=== PATIENT | male | born 1980 | race Caucasian/White ===

== ENCOUNTER 2017-08-02 18:46 | Emergency (ER) | payer MEDICAID, SELFPAY ==
[2017-08-02 18:47] VITALS: BP 157/111; PULSE 100; RESP 18; TEMP 36.8; O2SAT 100; BMI 36.3
--- NOTE | 2017-08-02 20:07 | CT_ITS ---
STUDY: CT BRAIN WITHOUT CONTRAST REASON FOR EXAM: Male, 36 years old. Left forearm numbness. Hypertension. RADIATION DOSAGE (If Supplied By Facility): CTDIvol = ( 44.99 ) mGy, DLP = ( 745.49 ) mGycm TECHNIQUE: Transaxial CT imaging of the brain was performed without administration of intravenous contrast material. Individualized dose optimization techniques were used for this CT. COMPARISON: None. FINDINGS: Normal soft tissue structures. Normal calvarium. Normal size ventricles and extra-axial spaces for the patient's age. Normal white matter tracts of the cerebral hemispheres. Normal basal ganglia and thalami. Normal brainstem. Normal cerebellum. There is no intracranial hemorrhage. There are no findings of an acute ischemic infarction. Normal visualized paranasal sinuses. CT/Brain/Head without Contrast IMPRESSION: Normal unenhanced CT scan of the brain. Electronically Signed: José Miguel Ruby MD at 21:13 EDT , Service support ,
--- NOTE | 2017-08-02 20:08 | EKG12_ITS ---
Test Reason : DIZZINESS Blood Pressure : / mmHG Vent. Rate : 083 BPM Atrial Rate : 083 BPM P-R Int : 116 ms QRS Dur : 098 ms QT Int : 366 ms P-R-T Axes : 016 011 -01 degrees QTc Int : 430 ms Normal sinus rhythm Normal ECG Confirmed by ROBBIE HOWARD ([id number]), restaurant expeditor ADRIAN GORDON ([id number]) on 08/05/2017 1:28:13 PM Referred By: MINDA Confirmed By:ROBBIE HOWARD
--- NOTE | 2017-08-02 20:09 | ED.VISSUMM ---
- ER Visit Summary Date of Service: 08/02/17 Chief Complaint: Left forearm numbness History of Present Illness: The patient is a 36 M no senior past medical history. He did have a negative cardiac catheterization in 2015 for atypical chest pain. He states that at around 6:30 PM this evening he developed left forearm numbness and tingling. Really does not describe any weakness. Denies any visual change. Denies any slurred speech. No trouble walking. Patient states he has had intermittent headaches the last several days. There is no family history of intracranial bleeds or aneurysms. He denies any recent head trauma he is on no blood thinners. Physical Examination: Well-appearing young male. Vital signs are stable afebrile. His initial blood pressure is elevated 150s 7/111. Pulse ox 100% on room air no signs of hypoxia. H EENT exam unremarkable. Pupils are reactive light. Extra motions are intact. No facial droop. Normal speech. No signs of head trauma. Neck nontender. No meningismus no lymphadenopathy. Lungs clear to auscultation bilaterally. Heart regular rate and rhythm no murmur. Chest wall nontender. Abdomen soft nontender. Extremities he is moving all 4. He has bilateral equal symmetrical security support analyst strength. Dorsi plantar flexion intact. He has normal range of motion of both upper and lower extremities. Subjectively he says the left forearm feels numb objectively is normal motor strength. He is able to flex and extend his left wrist elbow and shoulder. He has normal range of motion. He has a strong radial pulse. Neurologically other than subjective numbness in his left forearm is neurologic exam is completely normal. He has no focal motor deficits. Test Results: BC normal. BMP normal. EKG sinus rhythm. With no signs of ischemia or dysrhythmia. Chest x-ray normal. CT of the brain normal as read by the radiologist and reviewed by me. Emergency Department Course and Treatment: Repeat exam at 1018 the patient is completely back to normal. He said his numbness resolved. His neurologic exam is completely normal again. He has a good pulse in his left radial artery. He has normal security support analyst strength. He has normal sensation. He has full range of motion. His NIH score is 0. His neurologic exam is no different than it was when he first came in except at that time he had subjective numbness in his left forearm area. He has absolutely no motor loss or weakness. Treatment Plan: Patient's exam and workup has been negative. He will be discharged home to follow-up as an outpatient with Dr. Orozco. Disposition: Discharge Impression: Acute left forearm subjective numbness (paresthesia) of uncertain etiology resolved This note was generated with [employer] dictation software. It may contain incorrect words, spelling, and punctuation that were not noted in review of the chart prior to signing ED Disposition - Plan for ED Patient: Chief Complaint: Neuro S/Sx Referrals: Daniel Orozco MD [Primary Care Provider] -
--- NOTE | 2017-08-02 20:13 | ED.DCSUM_ITS ---
- ER Visit Summary Date of Service: 08/02/17 Chief Complaint: Left forearm numbness History of Present Illness: The patient is a 36 M no senior past medical history. He did have a negative cardiac catheterization in 2015 for atypical chest pain. He states that at around 6:30 PM this evening he developed left forearm numbness and tingling. Really does not describe any weakness. Denies any visual change. Denies any slurred speech. No trouble walking. Patient states he has had intermittent headaches the last several days. There is no family history of intracranial bleeds or aneurysms. He denies any recent head trauma he is on no blood thinners. Physical Examination: Well-appearing young male. Vital signs are stable afebrile. His initial blood pressure is elevated 150s 7/111. Pulse ox 100% on room air no signs of hypoxia. H EENT exam unremarkable. Pupils are reactive light. Extra motions are intact. No facial droop. Normal speech. No signs of head trauma. Neck nontender. No meningismus no lymphadenopathy. Lungs clear to auscultation bilaterally. Heart regular rate and rhythm no murmur. Chest wall nontender. Abdomen soft nontender. Extremities he is moving all 4. 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 Dorsi plantar flexion intact. He has normal range of motion of both upper and lower extremities. Subjectively he says the left forearm feels numb objectively is normal motor strength. He is able to flex and extend his left wrist elbow and shoulder. He has normal range of motion. He has a strong radial pulse. Neurologically other than subjective numbness in his left forearm is neurologic exam is completely normal. He has no focal motor deficits. Test Results: BC normal. BMP normal. EKG sinus rhythm. With no signs of ischemia or dysrhythmia. Chest x-ray normal. CT of the brain normal as read by the radiologist and reviewed by me. Emergency Department Course and Treatment: Repeat exam at 1018 the patient is completely back to normal. He said his numbness resolved. His neurologic exam is completely normal again. He has a good pulse in his left radial artery. He has normal chlorobutadiene scrubber operator strength. He has normal sensation. He has full range of motion. His NIH score is 0. His neurologic exam is no different than it was when he first came in except at that time he had subjective numbness in his left forearm area. He has absolutely no motor loss or weakness. Treatment Plan: Patient's exam and workup has been negative. He will be discharged home to follow-up as an outpatient with Dr. Orozco. Disposition: Discharge Impression: Acute left forearm subjective numbness (paresthesia) of uncertain etiology resolved This note was generated with [employer] dictation software. It may contain incorrect words, spelling, and punctuation that were not noted in review of the chart prior to signing ED Disposition - Plan for ED Patient: Chief Complaint: Neuro S/Sx Referrals: Daniel Orozco MD [Primary Care Provider] -
--- NOTE | 2017-08-02 20:25 | RAD_ITS ---
STUDY: X-RAY CHEST REASON FOR EXAM: Male, 36 years old. Chest pain. TECHNIQUE: Single AP portable view of the chest. COMPARISON: 06/08/2014. FINDINGS: The lungs are clear and expanded. There is no demonstrated pleural abnormality. Normal size heart. Normal mediastinum and donaldo. Normal visualized pulmonary arteries. Normal visualized aortic arch and descending thoracic aorta. Normal visualized thoracic spine. Normal visualized ribs, clavicles, and shoulders. There is no demonstrated abnormality of the visualized soft tissue structures of the upper abdomen. RAD/Chest 1 View (Portable) IMPRESSION: Normal x-ray examination of the chest. Electronically Signed: José Miguel Ruby MD at 21:18 EDT , Service support ,
[2017-08-02 20:28] LABS: Absolute Lymphocyte Count 2.07 X10^3/ul (0.83-4.51); Absolute Neutrophil Count 6.4 X10^3/uL (2.0-7.7); Basophil# 0.04 X10^3/uL; Basophil% 0.4 % (0-1); Eosinophil# 0.19 X10^3/uL; Hematocrit 43.9 % (40-54); Hemoglobin 15.6 g/dl (13.0-16.5); Lymphocyte # 2.07 X10^3/ul (4.0); Lymphocyte % 21.6 % (19-41); Mean Corp Hgb Conc 35.5 g/gl (32-36); Mean Corpuscular Hgb 29.1 pg (27.0-32.0); Mean Corpuscular Volume 81.8 fL (80-94); Mean Platelet Vol. 9.4 fl (6.2-12.0); Monocyte# 0.86 X10^3/uL; Neutrophil % 66.9 % (47-70); POSITIVE COUNT NO; POSITIVE DIFFERENTIAL NO; POSITIVE MORPHOLOGY NO; Platelet Count 241 K/mm3 (150-450); RBC Distribution Width CV 13.3 % (11.6-14.6); RBC Distribution Width SD 39.5 fl (35.1-43.9); Red Blood Count 5.37 M/mm3 (4.6-6.2); White Blood Count 9.6 K/mm3 (4.4-11.0)
[2017-08-02 20:41] LABS: Anion Gap 6 (5-15); BUN 11 mg/dL (7-18); BUN/Creat Ratio 11.1 RATIO (10-20); Calcium,Total 8.9 mg/dL (8.5-10.1); Chloride 104 mmol/L (98-107); EST Glomerular Filtration Rate 90 mL/min (>60); Est Glom Filt Rate - Afr Amer 109 mL/min (>60); Estimated Creatinine Clearance 102.12 ml/min; Glucose 90 mg/dL (74-106); Potassium 3.8 mmol/L (3.5-5.1); Sodium Level 139 mmol/L (136-145)
[2017-08-02 20:45] VITALS: BP 143/97; PULSE 82; RESP 16; O2SAT 100
[2017-08-02 21:53] VITALS: BP 124/83; PULSE 82; RESP 16; O2SAT 96
--- NOTE | 2017-08-02 22:21 | ED.DEP ---
ED Disposition - Plan for ED Patient: Disposition: Home or Assisted Living Chief Complaint: Neuro S/Sx Instructions: ED Paraesthesias Referrals: Daniel Orozco MD [Primary Care Provider] - As Needed Additional Instructions: All your workup including the CAT scan, chest x-ray, EKG and blood work were all normal tonight. Your exam is normal. Follow-up your primary care physician as needed. Return to the ER if weakness in any extremity, trouble with your balance, severe headache, or trouble walking.
[2017-08-02 22:28] VITALS: BP 143/96; PULSE 73; RESP 16; O2SAT 96
== END 2017-08-02 22:29 | disposition home or self-care (01) ==
PROVIDERS: Emergency Provider Emergency Medicine; Family Provider Family Medicine; PCP Family Medicine
DX: R20.0 Anesthesia of skin (principal); R20.2 Paresthesia of skin; R07.9 Chest pain, unspecified; R51 Headache; R03.0 Elevated blood-pressure reading, without diagnosis of hypertension; J45.909 Unspecified asthma, uncomplicated
CPT/HCPCS: 70450; 71045; 80048; 85025; 93005; 99285; A4216

== ENCOUNTER → 2017-09-04 10:39 | Outpatient (CLI) | payer MEDICAID, SELFPAY ==
[2017-09-04 11:35] LABS: AST(SGOT) 30 U/L (15-37); Alanine Aminotransfer ALT/SGPT 55 U/L (16-61); Albumin, Serum 3.9 g/dL (3.2-5.0); Alkaline Phosphatase 52 U/L (45-117); Bilirubin, Direct 0.18 mg/dL (0.00-0.30); Cholesterol 169 mg/dL (200); Globulin 3.9 g/dL (2.2-4.2); High Density Lipoprotein 41 mg/dL; Protein, Total 7.8 g/dL (6.4-8.2); T4 Total, Thyroxin 11.4 ug/dL (4.5-12.1); Thyroid Stim Hormone (TSH) 3.93 uIU/mL (0.358-3.74); Triglycerides 108 mg/dL; Very Low Density Lipoprotein 22 mg/dL (5-40)
== END ==
PROVIDERS: Family Provider Family Medicine; PCP Family Medicine; Visit Provider Internal Medicine Cardiovascular Disease
DX: R07.9 Chest pain, unspecified (principal); R42 Dizziness and giddiness; E66.9 Obesity, unspecified
CPT/HCPCS: 36415; 80061; 80076; 84436; 84443

== ENCOUNTER → 2017-09-13 15:24 | Outpatient (CLI) | payer MEDICAID, SELFPAY ==
--- NOTE | 2017-09-13 16:00 | CT_ITS ---
STUDY: CTA CHEST REASON FOR EXAM: Male, 36 years old. Family history of aortic dissection. Chest pain. RADIATION DOSAGE (If Supplied By Facility): CTDIvol = ( 15.63 ) mGy, DLP = ( 800.11 ) mGycm TECHNIQUE: The examination was performed with the intravenous administration of 100 ml of Isovue 370 contrast material. Post-processing of the angiographic images was performed, with multiplanar reformation and 3D reconstruction. Individualized dose optimization techniques were used for this CT. COMPARISON: None. FINDINGS: Normal enhancement of the main pulmonary artery and right and left pulmonary arteries. Normal enhancement of the bilateral peripheral pulmonary arteries. There is no demonstrated pulmonary embolism. Normal thoracic aorta and visualized great vessels. There is no demonstrated aortic dissection. Normal heart and pericardium. Normal mediastinum. Normal hilar regions. Normal visualized trachea and bronchi. The lungs are well expanded. Normal pulmonary parenchyma. Normal pleura. Normal chest wall structures. Normal osseous structures. There is diffuse fatty infiltration of the liver. CT/CTA Chest W/WO Contrast IMPRESSION: Normal CTA chest examination, without a demonstrated pulmonary embolism or arterial dissection. No evidence for acute chest disease. Electronically Signed: José Miguel Ruby MD at 23:57 EDT , Service support ,
== END ==
PROVIDERS: Family Provider Family Medicine; PCP Family Medicine; Visit Provider Physician Assistant Medical
DX: R07.9 Chest pain, unspecified (principal); Z82.49 Family history of ischemic heart disease and other diseases of the circulatory system
CPT/HCPCS: 71275; Q9967; A4216

== ENCOUNTER → 2017-09-26 10:21 | Outpatient (CLI) | payer MEDICAID, SELFPAY ==
--- NOTE | 2017-09-26 10:22 | STEWCON_ITS ---
Reason For Study: Chest Pain Stress Results Protocol: Greg Protocol Maximum Predicted HR: 184 bpm Target HR: 156 bpm% Max imum Predicted HR: 89 % DurationHeart Rate Stage (mm:ss) (bpm) BPCom ment Baseline 75 138/98 Definity 3 ML Given Diluted; 4/10 Chest Pain Greg Protocol Stage I 3:00 12 5 130/844/10 Chest Pain Greg Protocol Stage II 3:00 14 2 146/884/10 Chest Pain; Mild Dyspnea Greg Protocol Stage III 3:00 15 7 152/844/10 Chest Pain; Moderate Dyspnea Greg Protocol Stage IV 0:20 16 4 / 4/1 0 Chest Pain; Audible Wheezes; Moderate Dyspnea Recovery 96 132/94 4/10 Chest Pain; No Dyspnea Stress Duration: 9:20 mm:ss Maximum Stress HR: 164 bpmM ETS: 11 Baseline Echocardiogram Findings The estimated ejection fraction is 65 %. Stress Echo Wall motion Data Resting WMIntermediate WMStress WM Resting Wall Motion Wall Motion Stress No regional wall motion No regional wall motion abnormalities noted. abnormalities noted. EKG Data Normal intervals are noted. The patient exercised according to the regular Greg protocol for a total duration of 9:20. The maximum heart rate attained was 166 beats per minute. This was 90% of maximum predicted heart rate. The patient exercised into stage 4 of the Greg protocol. No arrhythmias noted. Interpretation Summary Contrast injection was performed. The estimated ejection fraction is 65 %. Normal adequate treadmill echocardiogram. Negative for ischemia by EKG and echocardiographic criteria. Patient had baseline 4 out of 10 chest pain prior to the test starting, which did not worsen or improve during exercise. No regional wall motion abnormalities noted at peak exercise. No arrhythmias noted. Average exercise capacity for age. Appropriate blood pressure response to exercise. Final LVEF of 75%. Decreased sensitivity due to poor echo windows requiring Definity agent. No complications. Ordering Physician: Kendall Bain Referring Physician: Kendall Bain Performed By: Tulio Sadnra RCS
== END ==
PROVIDERS: Family Provider Family Medicine; PCP Family Medicine; Visit Provider Internal Medicine Cardiovascular Disease
DX: R07.9 Chest pain, unspecified (principal); R42 Dizziness and giddiness; E66.9 Obesity, unspecified
CPT/HCPCS: 93017; 93350; Q9957; A4216; C8928

== ENCOUNTER → 2017-09-27 14:41 | Outpatient (CLI) | payer MEDICAID, SELFPAY ==
--- NOTE | 2017-09-27 14:42 | ECHOD_ITS ---
Reason For Study: CHEST PAIN Procedure This was a 2D Doppler, Color Flow transthoracic echocardiogram. Exam performed in department. Left Ventricle Normal size and thickness. The estimated ejection fraction is 60 %. Right Ventricle Normal RV size. Normal systolic function. Atria Normal left atrium. Normal right atrium. Mitral Valve Trivial mitral valve insufficiency. Tricuspid Valve Mild tricuspid valve insufficiency. Aortic Valve Trisinus/trileaflet aortic valve. Pulmonic Valve Normal pulmonic valve. Great Vessels Normal aortic root. Pericardium/Pleural No pericardial effusion. MMode/2D Measurements & Calculations LVIDd: 5.2 cm IVSd: 0.99 cm Ao root diam: 2.7 cm LVIDs: 3.2 cm LVPWd: 0.89 cm RVDd: 4.6 cm FS: 38.2 % LAV(MOD-bp): 50.1 ml EDV(MOD-sp4): 111.3 ml EDV(MOD-sp2): 85.1 ml LAV(MOD-bp) Indexed: 22.2 ml/m2 ESV(MOD-sp4): 36.5 ml EF(MOD-sp2): 66.9 % LAV(MOD-sp2): 45.6 ml EF(MOD-sp4): 67.2 % LAV(MOD-sp4): 43.9 ml SV(MOD-sp4): 74.9 ml SV(MOD-sp2): 56.9 ml LA A4 area: 16.6 cm2 RA A4 area: 14.1 cm2 Doppler Measurements & Calculations MV E max alberto: 92.9 cm/sec Lat Peak E' Alberto: 16.1 cm/sec Med Peak E' Alberto: 10.1 cm/sec MV A max alberto: 47.3 cm/sec E/E' lat: 5.8 E/E' med: 9.2 MV E/A: 2.0 Ao V2 max: 130.3 cm/sec LV V1 max: 111.1 cm/sec TR max alberto: 251.8 cm/sec Ao max P.8 mmHg LV V1 max P.9 mmHg TR max P.4 mmHg Interpretation Summary The estimated ejection fraction is 60 %. Mild tricuspid valve insufficiency. Ordering Physician: Kendall Bain Referring Physician: VASHTI RODRIGUEZ Performed By: Karlene Wahl RDCS, RVT
== END ==
PROVIDERS: Family Provider Family Medicine; PCP Family Medicine; Visit Provider Internal Medicine Cardiovascular Disease
DX: R07.9 Chest pain, unspecified (principal); R42 Dizziness and giddiness
CPT/HCPCS: 93306

== ENCOUNTER 2018-02-01 07:42 | Emergency (ER) | payer BC, MEDICAID, SELFPAY ==
[2018-02-01 07:42] VITALS: BP 138/101; PULSE 98; RESP 17; TEMP 37.3; O2SAT 97; BMI 35.6
--- NOTE | 2018-02-01 07:57 | ED.DCSUM_ITS ---
- ER Visit Summary Date of Service: 02/01/18 Chief Complaint: Rash History of Present Illness: The patient is a 37 M presents to the emergency department with rash. Patient states that he works second shift. He states to me at home from work, at about 1 AM, he noticed some redness on the dorsum of his left second finger. He states throughout the evening, the redness spread. He began have raised red rash on his chest, back, arms, and legs. He describes it as intensely itching. He denies any fevers or chills. He denies any new exposures. He is on no new medications. He denies any conjunctivitis or changes in the mucous membrane of his mouth. He denies any recent illness. He has had no nausea or vomiting. Patient does have history of prior MRSA infection of the hand, but states that this feels different. Physical Examination: Vital signs reviewed General: Well-nourished, well-developed Head: Normocephalic, atraumatic Eyes: Pupils equal and reactive, extraocular muscles intact Neck, supple, no lymphadenopathy Heart: Regular rate and rhythm Respiratory: No distress, clear bilaterally Abdomen: Soft, nontender, nondistended, no peritoneal signs Back: Nontender Extremities: Nontender, mild erythema and edema of the posterior left second finger, no pain to palpation, no cords Skin: Patient has diffuse blanching maculopapular rash involving both arms, chest, back, and anterior thighs. There is no petechiae. There is no purpura. There are no large areas of confluence. Neuro: Alert and oriented, no focal or lateralizing deficits Test Results: [] Emergency Department Course and Treatment: The patient presents with a cutaneous allergic reaction. It does appear as if he may have had some sort of injury or bite or sting to the dorsum of his left index finger. He now has secondary generalization of the rash. He has no evidence of anaphylaxis. He has no evidence of angioedema. He has no wheezing. The patient was treated with prednisone, Benadryl, and Pepcid. He was observed. He did have improvement of symptoms but did continue to have some itching. He was given Vistaril with improvement. His redness has significantly faded. At this time, I am going to keep him on a prednisone burst. This does seem mostly allergic, but the patient has had similar symptoms of cellulitis. He will be placed on Keflex.. I have no suspicion of Berumne-Shiva or other dangerous process. At this time, due to the patient is safe for discharge. He was counseled on concerning symptoms and reasons to return. Treatment Plan: [] Disposition: Discharge Impression: Allergic reaction This note was generated with [employer] dictation software. It may contain incorrect words, spelling, and punctuation that were not noted in review of the chart prior to signing ED Disposition - Plan for ED Patient: Chief Complaint: Rash Instructions: ED Allergic Reaction General Other Prescriptions: Cephalexin [Keflex] 500 mg PO Q8 #21 cap Prednisone 10 mg PO UD #33 tab Famotidine [Pepcid] 20 mg PO BID #14 tab Referrals: Daniel Orozco MD [Primary Care Provider] -
[2018-02-01] MEDS: predniSONE 20 MG Tablet 60 MG PO (07:58)
[2018-02-01] MEDS: DiphenhydrAMINE 25 MG Capsule 50 MG PO (07:58)
[2018-02-01] MEDS: Famotidine 20 MG Tablet PO (07:58)
[2018-02-01] MEDS: hydrOXYzine 50 MG/ML Vial IM (09:06)
[2018-02-01 09:53] VITALS: BP 144/82; PULSE 87; RESP 14; O2SAT 98
== END 2018-02-01 09:54 | disposition home or self-care (01) ==
LOC: ED 07:58
PROVIDERS: Emergency Provider Emergency Medicine; Family Provider Family Medicine; PCP Family Medicine
DX: L30.9 Dermatitis, unspecified (principal); T78.40XA Allergy, unspecified, initial encounter; X58.XXXA Exposure to other specified factors, initial encounter; Z79.899 Other long term (current) drug therapy; Z86.14 Personal history of Methicillin resistant Staphylococcus aureus infection
CPT/HCPCS: 96372; 99284

== ENCOUNTER 2018-04-23 09:20 | Emergency (ER) | payer BC, MEDICAID, SELFPAY ==
[2018-04-23 09:21] VITALS: BP 155/97; PULSE 73; RESP 17; TEMP 36.2; O2SAT 98; BMI 35.2
--- NOTE | 2018-04-23 09:32 | RAD_ITS ---
STUDY: X-RAY - LUMBAR SPINE REASON FOR EXAM: Male, 37 years old. Low back pain following a recent fall. TECHNIQUE: 3 view(s) of the lumbar spine were obtained. COMPARISON: None FINDINGS: Normal lumbar lordosis. There is no substantial scoliosis. There is a normal alignment of the vertebrae. Mild degree of anterior spondylolisthesis at the L2-L3 level. Normal disc space heights. The soft tissue structures are unremarkable. RAD/Lumbar Spine 2 or 3 Views IMPRESSION: Spondylosis at the L2-L3 level. Electronically Signed: Matt Guillermo MD at 10:06 EST Tel [phone], Service support ,
--- NOTE | 2018-04-23 09:32 | RAD_ITS ---
STUDY: X-RAY - RIGHT HIP REASON FOR EXAM: Male, 37 years old. Right hip pain following a recent fall. TECHNIQUE: 2 views of the hip. COMPARISON: None. FINDINGS: Normal femoral head, neck, intertrochanteric region and visualized proximal femur. Normal acetabulum. Normal hip joint. Normal visualized superior and inferior pubic rami and ischial tuberosities. Small phleboliths in the right hemipelvis. RAD/HIP, UNI W/ Pelvis 2-3 Views IMPRESSION: No acute abnormality is seen. Electronically Signed: Matt Guillermo MD at 10:04 EST Tel [phone], Service support ,
--- NOTE | 2018-04-23 09:42 | ED.VISSUMM ---
- ER Visit Summary Date of Service: 04/23/18 Chief Complaint: Fall History of Present Illness: The patient is a 37 M who fell on his steps 2 days ago. Patient states he was going up the steps, lost his balance, and fell backwards down 3 steps landing on his right side. He is complaining of pain to the lateral right hip and to his lower back on the right. Pain does not radiate down to his foot. He does not have paresthesias. He did not strike his head or lose consciousness. Patient did take some Aleve with last dose taken before work last night. Physical Examination: Vital signs grossly unremarkable. Patient sitting upright in bed no acute distress. Head neck examination reveals no sign of trauma. Heart is regular rate and rhythm. Lungs sounds clear. Abdomen is soft nontender. Back examination reveals reproducible tenderness in the right low lumbar paraspinals. Lower extremity examination reveals tenderness of the greater trochanter of the right hip. No ecchymosis is noted. Neuro exam is unremarkable. Test Results: Pelvis with right hip is unremarkable and shows no sign of fracture. Lumbar spine x-rays show no fracture. Emergency Department Course and Treatment: Patient is given naproxen here. He will be given perception for naproxen as well as Flexeril. Treatment Plan: [] Disposition: Discharge Impression: 1. Mechanical fall with muscular skeletal lumbar strain 2. Right hip contusion This note was generated with [employer] dictation software. It may contain incorrect words, spelling, and punctuation that were not noted in review of the chart prior to signing ED Disposition - Plan for ED Patient: Chief Complaint: Fall Referrals: Daniel Orozco MD [Primary Care Provider] -
[2018-04-23] MEDS: Naproxen 500 MG Tablet PO (09:46)
--- NOTE | 2018-04-23 09:59 | ED.DEP ---
ED Disposition - Plan for ED Patient: Disposition: Home or Assisted Living Chief Complaint: Fall Instructions: ED Mechanical Fall, ED Sprain Strain Lumbar, ED Contusion Hip Prescriptions: Naproxen [Naprosyn] 500 mg PO BID PRN PRN #20 tablet PRN Reason: Pain Cyclobenzaprine [Flexeril] 10 mg PO TID PRN #20 tablet PRN Reason: Muscle Spasm Referrals: Daniel Orozco MD [Primary Care Provider] - 1 Week if not improving
== END 2018-04-23 10:39 | disposition home or self-care (01) ==
PROVIDERS: Emergency Provider Emergency Medicine; Family Provider Family Medicine; PCP Family Medicine
DX: S39.012A Strain of muscle, fascia and tendon of lower back, initial encounter (principal); S70.01XA Contusion of right hip, initial encounter; W10.9XXA Fall (on) (from) unspecified stairs and steps, initial encounter; Y93.9 Activity, unspecified; Y92.009 Unspecified place in unspecified non-institutional (private) residence as the place of occurrence of the external cause; Y99.9 Unspecified external cause status; J45.909 Unspecified asthma, uncomplicated; F32.9 Major depressive disorder, single episode, unspecified; Z79.899 Other long term (current) drug therapy; Z87.891 Personal history of nicotine dependence
CPT/HCPCS: 72100; 73502; 99283

== ENCOUNTER 2019-07-30 08:57 | Emergency (ER) | payer BC, SELFPAY ==
[2019-07-30 08:58] VITALS: BP 183/116; PULSE 101; RESP 18; TEMP 36.6; O2SAT 98; BMI 37.6
--- NOTE | 2019-07-30 09:04 | RAD_ITS ---
STUDY: X-RAY - LEFT SHOULDER REASON FOR EXAM: Male, 38 years old. Pain s/p football injury TECHNIQUE: 3 view(s) of the shoulder. COMPARISON: None. FINDINGS: Normal glenohumeral articulation. Normal acromioclavicular joint. Normal acromion. Normal humeral head and visualized proximal humerus. The soft tissue structures are unremarkable. Normal visualized pulmonary apex. RAD/Shoulder min 2 Views IMPRESSION: Normal x-ray examination of the shoulder. Electronically Signed: Matt Guillermo, at 9:44 EDT , Service support ,
--- NOTE | 2019-07-30 09:04 | ED.VIS.GEN ---
History of Present Illness Chief Complaint: Upper Extremity Injury Informant: Patient Onset: Days Context: Gradual Onset Timing: Continuous Current Severity: Moderate Maximum Severity: Moderate Narrative: The patient is a 38-year-old male who is right-hand dominant that presents to the emergency department with left shoulder injury. Patient states he was playing football. He states that he got struck in the shoulder. He iced it for a few days and thought that it was just muscular. He states since then, he has had some pain especially when he moves the shoulder. He denies any chest pain or dyspnea. The pain is not radiating. He states if he lifts his arm above his head is when he gets most of his pain. He is otherwise been in his normal state of health. Prior similar symptoms: No Recent Illness/Hospitalization: No Past Medical History - Allergies and Home Meds Allergies/Adverse Reactions: Allergies simvastatin Adverse Reaction (Severe, Verified 07/30/19 09:00) Severe myalgias Primary Care Physician: Javier Pino DO [STAFF PHYSICIAN] - Prior records reviewed: Yes Past Medical History: - - Coronary vascular disease Surgical History: noncontributory Smoking Status: Former smoker - Family History Maternal Family History: Family History (Last Reviewed 04/07/18 @ 14:57 by Geni Alexandre) Mother CAD (coronary artery disease) Myocardial infarction Grandfather CAD (coronary artery disease) Grandmother CAD (coronary artery disease) Brother Heart disease Family History: Reports: Heart Disease Paternal Family History: Family History (Last Reviewed 04/07/18 @ 14:57 by Geni Alexandre) Mother CAD (coronary artery disease) Myocardial infarction Grandfather CAD (coronary artery disease) Grandmother CAD (coronary artery disease) Brother Heart disease Family History: Reports: No pertinent history Sibling Family History: Family History (Last Reviewed 04/07/18 @ 14:57 by Geni Alexandre) Mother CAD (coronary artery disease) Myocardial infarction Grandfather CAD (coronary artery disease) Grandmother CAD (coronary artery disease) Brother Heart disease Family History: Reports: No pertinent history Review of Systems General: Denies: Chills, Fever, Sweats Eyes: Denies: Visual changes - bilaterally, Diplopia ENT: Denies: Rhinorrhea, Sore throat Cardiovascular: Denies: Chest pain, Palpitations Respiratory: Denies: Dyspnea, Cough, Dyspnea on exertion Gastrointestinal: Denies: Abdominal pain, Nausea, Vomiting, Diarrhea, Melena, Hematochezia Genitourinary: Denies: Dysuria, Hematuria, Frequency Musculoskeletal: Denies: Back pain, Extremity Pain Skin: Denies: Rash, Wounds Neurological: Denies: Headache, Weakness, Numbness Physical Exam Vital Signs/Narrative: Vital Signs Temp Pulse Resp BP Pulse Ox 07/30/19 08:58 97.9 F 101 H 18 183/116 H 98 Inital Vital Signs reviewed: Yes General: Well nourished, Well developed, No Acute Distress Head: Normocephalic, Atraumatic Eyes: Perrl, EOMI ENT: Moist mucous membranes, No rhinorrhea Neck: Supple, Nontender Cardiovascular: Regular rate, Regular rhythm, No murmurs Respiratory: No distress, CTA bilaterally, Chest nontender Abdomen: Soft, Nontender, Nondistended, Normal bowel sounds Back: Nontender, Normal Inspection Extremities: No edema, Tenderness - Tender over the proximal humerus. No gross laxity. Axillary nerve preserved. No evidence of dislocation. Skin: Normal color, No rash Neurological: Alert, Oriented x3, Cranial nerves II-XII grossly intact, Normal Strength, Normal Sensation Psychological: Normal affect, Normal Mood Diagnostic/Tx/Re-eval Clinical Impression(s) from Imaging Studies Shoulder X-Ray 07/30/19 09:04 IMPRESSION: Normal x-ray examination of the shoulder. Electronically Signed: Matt Eagle, at 9:44 EDT , Service support , - Medical Decision Making Patient presents with atraumatic shoulder pain after injury 1 week ago. His joint is intact. His axillary nerve is preserved. He has had no chest pain. Plain films were obtained of the shoulder which show no evidence of acute fracture. I do suspect this is likely shoulder strain versus rotator cuff pathology. He will be placed in a sling for comfort. The patient will be given outpatient orthopedic follow-up. Impression 1. Left shoulder strain ED Disposition - Plan for ED Patient: Instructions: Shoulder Sprain Prescriptions: Naproxen [Naprosyn] 500 mg PO BID PRN #20 tab Prescription Printed Referrals: Javier Pino DO [STAFF PHYSICIAN] -
[2019-07-30 10:37] VITALS: BP 114/79; PULSE 62; RESP 15; O2SAT 97
== END 2019-07-30 10:38 | disposition home or self-care (01) ==
LOC: ED 09:42
PROVIDERS: Emergency Provider Emergency Medicine; PCP Family Medicine
DX: S46.912A Strain of unspecified muscle, fascia and tendon at shoulder and upper arm level, left arm, initial encounter (principal); W51.XXXA Accidental striking against or bumped into by another person, initial encounter; Y93.61 Activity, american tackle football; Y92.9 Unspecified place or not applicable; Y99.9 Unspecified external cause status; Z79.899 Other long term (current) drug therapy; Z87.891 Personal history of nicotine dependence
CPT/HCPCS: 73030; 99282

== ENCOUNTER 2019-10-27 11:08 | Emergency (ER) | payer MEDICAID, SELFPAY ==
[2019-10-27 11:09] VITALS: BP 146/90; PULSE 87; RESP 17; TEMP 36.4; O2SAT 98; BMI 36.2
--- NOTE | 2019-10-27 11:23 | US_ITS ---
STUDY: SCROTUM ULTRASOUND REASON FOR EXAM: Male, 38 years old. BILAT PAIN TECHNIQUE: Ultrasound evaluation of the scrotum was performed with color Doppler and static templeton-scale imaging. COMPARISON: None. FINDINGS: RIGHT TESTICLE INTRATESTICULAR: There is a normal size of the right testicle. The right testicle measures 4.3 x 3.0 x 2.2 cm. There is a homogenous echotexture. There is normal arterial and normal venous vascularity. There is no demonstrated right testicular mass or cyst. EXTRATESTICULAR: The epididymis is normal in size. The epididymis head measures 1.6 x 1.0 x 0.6 cm. There is normal vascularity of the epididymis. There is no demonstrated epididymal cystic structure. There is no demonstrated hydrocele. There is no demonstrated varicocele. There is no demonstrated extratesticular mass or cyst. LEFT TESTICLE INTRATESTICULAR: There is a normal size of the left testicle. The left testicle measures 4.3 x 2.9 x 2.5 cm. There is a homogenous echotexture. There is normal arterial and normal venous vascularity. There is no demonstrated left testicular mass or cyst. EXTRATESTICULAR: The epididymis is normal in size. The epididymis head measures 1.0 x 1.3 x 0.5 cm. There is normal vascularity of the epididymis. There is no demonstrated epididymal cystic structure. There is no demonstrated hydrocele. There is no demonstrated varicocele. There is no demonstrated extratesticular mass or cyst. US/Testicular with Arterial Flow IMPRESSION: Normal bilateral testicles. Electronically Signed: Laci Alvarez MD at 12:03 EDT Tel , Service support ,
--- NOTE | 2019-10-27 11:24 | ED.VISSUMM ---
- ER Visit Summary Date of Service: 10/27/19 Chief Complaint: [Scrotal pain] History of Present Illness: The patient is a 38 M [presents to the emergency department complaint of pain in his testicles for last 4 days. Patient denies any trauma. Patient states that more the pain seems to be sharp and into the left testicle. He has some dull ache in the right 1. Patient has had epididymitis in the past. He denies any fevers. He denies dysuria. He denies any abdominal pain or back pain. Currently rates his pain a 6 out of 10. Patient otherwise has no medical history. He has had prior vasectomy.] Physical Examination: [HEENT-PERRLA, EOMI. Cranial nerves II through XII grossly intact. TMs clear. Mucous membranes moist. No adenopathy. Cardiovascular-regular rate and rhythm without murmur or ectopy Lungs-clear to auscultation, chest wall stable without crepitus or subcu emphysema Abdomen-normoactive bowel sounds, soft, nontender, no rebound or rigidity, no peritoneal signs. exam-patient is a circumcised male. He does have tenderness over left epididymis. Testicle has a normal lie. Normal cremasteric reflex. Patient has no real discomfort over right testicle or epididymis. Extremities-intact ?4, normal range of motion, normal pulses, atraumatic] Test Results: [Urinalysis was normal. Testicular ultrasound obtained was normal.] Emergency Department Course and Treatment: [] Treatment Plan: [We will be treated with Bactrim for 7 days suspect he may have low-grade case of epididymitis. Patient will be referred to urology for follow-up.] Disposition: [Discharged home in stable condition] Impression: [Left testicular pain] This note was generated with [employer] dictation software. It may contain incorrect words, spelling, and punctuation that were not noted in review of the chart prior to signing ED Disposition - Plan for ED Patient: Referrals: Daniel Orozco MD [Primary Care Provider] -
[2019-10-27 12:43] LABS: Bacteria 0 SEEN /hpf (None Seen); Red Blood Cells-Urine 0 SEEN /hpf (0-5); Squamous Epithelial Cells - UA 0 SEEN /hpf (0-5); White Blood Cells 0 SEEN /hpf (0-5)
[2019-10-27 12:50] LABS: Color, Urine Yellow (Yellow); Glucose, Dipstick Normal (Normal); Ketone-Dipstick Negative (Negative); Leukocyte Esterase-Dipstick Negative /ul (Negative); Nitrite-Dipstick Negative (Negative); Occult Blood-Urine Negative /ul (Negative); Protein-Dipstick Negative (Negative); Urine Bilirubin Dipstick Negative (Negative); Urine Clarity Sl. Cloudy (Clear); Urine Urobilinogen Normal (Normal); Urine pH 6.5 (5.0 - 8.0)
[2019-10-27 12:59] LABS: Mucous, Urine 1+ /hpf (<or=2+)
--- NOTE | 2019-10-27 13:11 | ED.DEP ---
ED Disposition - Plan for ED Patient: Instructions: ED Epididymitis Prescriptions: Smz/Tmp Ds [Bactrim Ds] 1 tab PO BID #14 tab Transmission Status: Pending to [id number] Referrals: Daniel Orozco MD [Primary Care Provider] - Markell Rowley MD [STAFF PHYSICIAN] - 5-7 Days
[2019-10-27 13:18] VITALS: BP 136/90
--- OUTSIDE RECORDS SUMMARY | 2020-03-06 10:16 | XMS RPT_ITS | CCD ---
:1980 External Reference #:[id number] Author Organization [facility] Care Team Providers Name Role Phone RIDERJordy Unavailable Unavailable PHYSICIAN Unavailable Unavailable Results Result Name Value Range Unit Interpretation Flag Date Location progress on 2019-12 PROGRESS HNO ID: [id number] Normal 01-14-2020 [facility] Author: David (Security Engineer) [place] ([id number]) Service: ? Author Type: Nurse Practitioner Type: Progress Notes Filed: 01/14/2020 2:37 PM Note Text: Subjective HPI HPI Lonnie Bob is a 39 year old male who presents t [facility] for CC of dental pain. This started 1 week ago. Has tried otc medicati on. Symptoms are worsened by nothing. Risk factors hx of poor dental heal th. Denies uri symptom. .Patient presents with: Toothache: x 1 week PAST MEDICAL HISTORY Diagnosis Date - Asthma - Depression - Heart abnormality - NEGATIVE MEDICAL HISTORY - Obesity - Thyroid activity decreased PAST SURGICAL HISTORY Procedure Laterality Date - COLONOSCOP W/ OR W/O BRSH SPEC 06/02/15 Colonoscopy - EGD W/O OR W/BRUSH/WASH 06/02/15 EGD - LEFT HEART CATH,PERCUTANEOUS 06/09/14 Cardiac cath, L heart- [place] - VASECTOMY 06/21/10 ALLERGIES Simvastatin MEDICATIONS levothyroxine (SYNTHROID) 50 mcg tablet Take 1 tablet by rhea th once daily. Take on empty stomach. For Thyroid. cyclobenzaprine (FLEXERIL) 10 mg tablet Take 1 tablet by rhea th three times daily as needed. Cholecalciferol, Vitamin D3, 1,000 unit cap Take 1 capsule b y mouth once daily. BUDESONIDE (PULMICORT INHALATION) Inhale as instructed. albuterol HFA 90 mcg/actuation inhaler Inhale 2 Puffs as ins tructed every 6 hours as needed for Wheezing/Shortness of Breath. multivitamin tablet Take 1 tablet by mouth once daily. amoxicillin (AMOXIL) 875 mg tablet Take 1 tablet by mouth tw ice daily for 10 days. omeprazole (PRILOSEC) 20 mg capsule Take 1 capsule by mouth daily before breakfast. 1/2 hr before meal. FAMILY HISTORY Problem Relation Age of Onset - Coronary Artery Disease Mother - Coronary Artery Disease Maternal Grandfather - None Father - COPD Maternal Grandmother - COPD Maternal Grandfather Social History Tobacco Use - Smoking status: Former Smoker Packs/day: 1.00 Years: 8.00 Pack years: 8.00 Types: Cigarettes Quit date: 04/25/2005 Years since quittin.7 - Smokeless tobacco: Never Used Substance Use Topics - Alcohol use: No - Drug use: No ROS Objective Blood pressure 112/72, pulse 87, resp. rate 16, weight 116.8 kg (257 lb 9.6 oz). Physical Exam Constitutional: He is oriented to person, place, and time an d well-developed, well-nourished, and in no distress. Non-toxi c appearance. He does not have a sickly appearance. No distress. HENT: Head: Normocephalic and atraumatic. Right Ear: Hearing, tympanic membrane, external ear and ear canal normal. Left Ear: Hearing, tympanic membrane, external ear and ear c anal normal. Nose: Nose normal. Mouth/Throat: Uvula is midline, oropharynx is clear and mois t and mucous membranes are normal. Eyes: Pupils are equal, round, and reactive to light. Conjun ctivae and lids are normal. Right eye exhibits no discharge. Left eye e xhibits no discharge. No scleral icterus. Neck: Trachea normal and normal range of motion. Neck supple . Pulmonary/Chest: Effort normal. Lymphadenopathy: He has no cervical adenopathy. Neurological: He is alert and oriented to person, place, and time. Skin: No rash noted. He is not diaphoretic. ASSESSMENT/PLAN: 1. Tooth infection - ICD9: 522.4, ICD10: K04.7 Take medication as ordered See dentist lynette Follow up if signs of infection worsen - AMOXICILLIN 875 MG TABLET Agrees to plan David Cruz APRN.AUTOMATIC OUTSOLE CUTTER cnov on 2020-01-14 CNOV Office Visit (UCWSTR) Normal 01-14-20 [place] [facility] LISBETHLONNIE CHONG ([id number]) 1980 [facility] Date Time Provider Department ([id number]) 01/14/20 2:00 PM DAVID CRUZ (JAGRUTI) [facility] During your visit today, we recorded the following informati on about you: Pulse Respiration Blood pressure Weight 87/minute 16/minute 112/72 116.8 kg David Cruz APRN.CNP 01/14/2020 2:37 PM Signed Subjective HPI HPI Lonnie Corbett Lisbeth is a 39 year old male who presents t [place] for CC of dental pain. This started 1 week ago. Has tried otc me dication. Symptoms are worsened by nothing. Risk factors hx of poor dental health. Denies uri symptom. .Patient presents with: Toothache: x 1 week PAST MEDICAL HISTORY Diagnosis Date - Asthma - Depression - Heart abnormality - NEGATIVE MEDICAL HISTORY - Obesity - Thyroid activity decreased PAST SURGICAL HISTORY Procedure Laterality Date - COLONOSCOP W/ OR W/O BRSH SPEC 06/02/15 Colonoscopy - EGD W/O OR W/BRUSH/WASH 06/02/15 EGD - LEFT HEART CATH,PERCUTANEOUS 06/09/14 Cardiac cath, L heart- [place] - VASECTOMY 06/21/10 ALLERGIES Simvastatin MEDICATIONS levothyroxine (SYNTHROID) 50 mcg tablet Take 1 tablet by mouth once daily. Take on empty stomach. For Thyroid. cyclobenzaprine (FLEXERIL) 10 mg tablet Take 1 tablet by three times daily as needed. Cholecalciferol, Vitamin D3, 1,000 unit cap Take 1 capsule by mouth once daily. BUDESONIDE (PULMICORT INHALATION) Inhale as instructed. albuterol HFA 90 mcg/actuation inhaler Inhale 2 Puffs as i nstructed every 6 hours as needed for Wheezing/Shortness of Breath. multivitamin tablet Take 1 tablet by mouth once daily. amoxicillin (AMOXIL) 875 mg tablet Take 1 tablet by [facility] twice daily for 10 days. omeprazole (PRILOSEC) 20 mg capsule Take 1 capsule by mouth daily before breakfast. 1/2 hr before meal. FAMILY HISTORY Problem Relation Age of Onset - Coronary Artery Disease Mother - Coronary Artery Disease Maternal Grandfather - None Father - COPD Maternal Grandmother - COPD Maternal Grandfather Social History Tobacco Use - Smoking status: Former Smoker Packs/day: 1.00 Years: 8.00 Pack years: 8.00 Types: Cigarettes Quit date: 04/25/2005 Years since quittin.7 - Smokeless tobacco: Never Used Substance Use Topics - Alcohol use: No - Drug use: No ROS Objective Blood pressure 112/72, pulse 87, resp. rate 16, weight 116.8 kg (257 lb 9.6 oz). Physical Exam Constitutional: He is oriented to person, place, and time and well-developed, well-nourished, and in no distress. Non-toxic appearan ce. He does not have a sickly appearance. No distress. HENT: Head: Normocephalic and atraumatic. Right Ear: Hearing, tympanic membrane, external ear and ear canal normal. Left Ear: Hearing, tympanic membrane, external ear and ear c anal normal. Nose: Nose normal. Mouth/Throat: Uvula is midline, oropharynx is clear and mois t and mucous membranes are normal. Eyes: Pupils are equal, roun d, and reactive to light. Conjunctivae and lids are normal. Right eye exhibits no discharge. Left eye exhibits no discharge. No scleral icterus. Neck: Trachea normal and normal range of motion. Neck supple . Pulmonary/Chest: Effort normal. Lymphadenopathy: He has no cervical adenopathy. Neurological: He is alert and oriented to person, place, and time. Skin: No rash noted. He is not diaphoretic. ASSESSMENT/PLAN: 1. Tooth infection - ICD9: 522.4, ICD10: K04.7 Take medication as ordered See dentist lynette Follow up if signs of infection worsen - AMOXICILLIN 875 MG TABLET Agrees to plan David Cruz APRN.AUTOMATIC OUTSOLE CUTTER Referring Provider: SELF [[id number]] Allergies As of Date: 01/14/2020 Noted Allergy Reaction SIMVASTATIN 11/05/2019 14 - Other: See Comments Comments: Unsure of reaction Date Reviewed: 01/14/2020 Reviewed by: Yamila Gtz Ma - Fully Assessed Reason for Visit: Toothache [1289] Cmt: x 1 week Primary Visit Diagnosis:Tooth infection [K04.7] Order(s):amoxicillin (AMOXIL) 875 mg tabletTake 1 tablet by mouth twice daily for 10 days.Disp: 20 tabletRfl: 0 Prescriptions as of 01/14/2020 Sig: LEVOTHYROXINE 50 MCG TABLET Take 1 tablet by mouth once d* CYCLOBENZAPRINE 10 MG TABLET Take 1 tablet by mouth three * CHOLECALCIFEROL (VITAMIN D3) * Take 1 capsule by mouth once * PULMICORT INHALATION Inhale as instructed. ALBUTEROL SULFATE HFA 90 MCG/* Inhale 2 Puffs as instructed * * MULTIVITAMIN TABLET Take 1 tablet by mouth once d* AMOXICILLIN 875 MG TABLET Take 1 tablet by mouth twice * OMEPRAZOLE 20 MG CAPSULE,OMER* Take 1 capsule by mouth daily * Patient not taking: Reported on 03/31/2019 Problem List As Of Date 01/14/2020 Noted Resolved Sterilization [Z30.2] 06/05/2010 Depression [F32.9] 07/31/2012 Adjustment disorder [F43.20] 07/31/2012 Sleep difficulties [G47.9] 08/18/2012 Kienbock's avascular necrosis of lunate, adult *03/28/2015 Subclinical hypothyroidism [E03.9] 05/03/2015 06/23/2018 Mild persistent asthma [J45.30] 05/24/2015 Hypothyroidism [E03.9] 05/24/2015 Constitutional obesity [E66.8] 05/24/2015 Former smoker [Z87.891] 05/24/2015 Prescriptions ordered this encounter Disp Refills Start End AMOXICILLIN 875 MG TABLET 20 t* 0 01/14/2020 01/24/2020 Route: ORAL Sig: Take 1 tablet by mouth twice daily for 10 days. Encounter Status:Closed by DAVID CRUZ CNP on 01/14/20 progress on 2019-10 PROGRESS HNO ID: [id number] Normal 11-05-2019 [facility] Author: Sharlene Aragon) Stephen Srivastava ([id number]) Service: ? Author Type: Physician Family Law Paralegal Type: Progress Notes Filed: 11/05/2019 9:58 AM Note Text: [facility] [place] PATIENT INFO: Lonnie Bob 38 year old [facility]CF# [id number] PCP: Vashti Orozco MD Referred by: Vashti Orozco MD Consult: A consultation was requested by Vashti Orozco MD for an op inion regarding Bilateral Testicle pain. My final recommendations communicated back to the requesting physician by way of shared Medical record. CHIEF COMPLAINT: Bilateral Testicle pain. HPI: This is a 38 year old male, who has Bilateral Testicle pain. , which started in 2019, and involves the Testicular (both) Patient states this mild in severity and mild in quality, an d is happening intermittently Aggravating factors: No , Alleviating Factors: No . And the patient denies having Fever, Chills, Nausea and Vomiting VOIDING SYMPTOMS: All GUROS reviewed, all were negative ALLERGY: ALLERGIES Allergen Reactions - Simvastatin Other: See Comments Unsure of reaction MEDICATIONS: Current Outpatient Medications Medication Sig Dispense Refill - levothyroxine (SYNTHROID) 50 mcg tablet Take 1 tablet by m outh once daily. Take on empty stomach. For Thyroid. 30 tablet 2 - Cholecalciferol, Vitamin D3, 1,000 unit cap Take 1 capsule by mouth once daily. 0 - BUDESONIDE (PULMICORT INHALATION) Inhale as instructed. - albuterol HFA 90 mcg/actuation inhaler Inhale 2 Puffs as i nstructed every 6 hours as needed for Wheezing/Shortness of Breath. 1 Inhaler 2 - multivitamin tablet Take 1 tablet by mouth once daily. - cyclobenzaprine (FLEXERIL) 10 mg tablet Take 1 tablet by m outh three times daily as needed. 30 tablet 2 - omeprazole (PRILOSEC) 20 mg capsule Take 1 capsule by mout h daily before breakfast. 1/2 hr before meal. (Patient not taking: Reported on 03/31/2019 ) 30 capsule 1 No current facility-administered medications for this visit. Past Medical History PAST MEDICAL HISTORY Diagnosis Date - Asthma - Depression - Heart abnormality - NEGATIVE MEDICAL HISTORY - Obesity - Thyroid activity decreased Past Surgical History PAST SURGICAL HISTORY Procedure Laterality Date - COLONOSCOP W/ OR W/O BRSH SPEC 06/02/15 Colonoscopy - EGD W/O OR W/BRUSH/WASH 06/02/15 EGD - LEFT HEART CATH,PERCUTANEOUS 1/21/15 Cardiac cath, L heart- [place] - VASECTOMY 06/21/10 Family History FAMILY HISTORY Problem Relation Age of Onset - Coronary Artery Disease Mother - Coronary Artery Disease Maternal Grandfather - None Father - COPD Maternal Grandmother - COPD Maternal Grandfather REVIEW OF SYSTEMS: General: General: Well developed, well nourished. No acute d istress HEENT: Negative for sore throat, difficulty swallowing. Negative for frequent or significant headaches, changes in v ision or hearing. Cardiovascular: No history of cardiovascular symtoms or prob lems. No history of angina, CHF, SC, cardiac surgery of stents. Respiratory: Negative for current cough, dyspnea. No hx of p neumonia in the past six weeks Gastrointestinal: No history of GERD, PUD, abd pain, difficu lty swallowing, GI bleed. Renal: Negative for renal failure and No history of dialysis Musculoskeletal: Negative for joint pain or swelling, back p ain or muscle pain. Skin: Negative for lesions, rash and itching. Psychological: No history of psychiatric symptoms or problem s. Neurologic: No history of TIA's, stroke, PRESCHOOL TEACHER AIDE tumor, impaired sensorium, hemiplegia, paraplegia or quadriplegia. No neurological symp toms or problems. Hematology/Oncology: No history of bleeding or clotting diso rder. Pt is not taking anti-coagulation or platelet medications. No hist ory of hematological symptoms or problems. Endocrine: No history of endocrinological symtoms or problem s No history of DM; has not taken steroids w/in past 30 days. Negative for excessive sweating, thirst or hunger Physical Examination: Blood pressure 130/84, pulse 80, temperature 36.8 ?C (98.2 ? F), temperature source Temporal Artery, resp. rate 16, weight 11 7.7 kg (259 lb 6.4 oz), SpO2 98 %. General Appearance/ Constitutional: Well developed, well nou rished, and in no apparent distress HEENT: Not examined Neck: Lymph Nodes: Not examined Cardiac: Normal Breast: Not examined Pulmonary: Ascultation: Normal Effort: Normal GI: Soft and Non-tender Peripheral Vascular: Not examined Extremities: Cyanosis absent and Edema absent Skin: Not examined Neurologic: Grossly non-focal and Alert and oriented (MALE): Penis: Normal without external lesions Testicles: bilaterally and normal Scrotum: Normal Results for orders placed or performed in visit on 11/05/19 UA DIP, URINE (POC) Result Value Ref Range GLUCOSE UA (POCT) Negative Negative mg/dL BILIRUBIN UA (POCT) Negative Negative KETONE UA (POCT) Negative Negative mg/dL SPECIFIC GRAVITY UA (POCT) 1.015 1.005 - 1.030 HEMOGLOBIN/BLOOD UA (POCT) Negative Negative PH UA (POCT) 7.0 4.5 - 8.0 PROTEIN UA (POCT) Negative Negative mg/dL UROBILINOGEN UA (POCT) 0.2 Normal E.U./dL NITRITE UA (POCT) Negative Negative LEUKOCYTES UA (POCT) Negative Negative COLOR UA (POCT) Yellow CLARITY UA (POCT) Clear RADIOLOGY: US Scrotum - [facility] report - Normal - scanned into EPIC IMPRESSION / PLAN: > History of Bilateral Testicle pain. > Given Bactrim at Urgent Care and seems to have improved gr eatly > Discussed id this flares up and continues that I would nee d to see him again and determine if pelvic floor is in spasm and the need for PFPT I spent approximately 40 minutes in this visit, with more th an 50% of the time devoted to patient discussion, counseling, review of re cords and/or coordination of care. Sharlene De La Rosa, AILEENS, [place], PAMaria De JesusC cnov on 2019-11-05 CNOV Office Visit (UROLWS) Normal 11-05-[address] [place] [address] [facility] LONNIE BOB ([id number]) 1980 [facility] Date Time Provider Department ([id number]) 11/05/19 9:20 AM SHARLENE DE LA ROSA) UROLWS During your visit today, we recorded the following informati on about you: Temperature Pulse Respiration Blood pressure 98.2 degrees 80/minute 16/minute 130/84 Weight 117.7 kg VENTURA Varela 11/05/2019 9:58 AM Signed [facility] [place] PATIENT INFO: Lonnie Bob 38 year old [facility]CF# [id number] PCP: Vashti Orozco MD Referred by: Vashti Orozco MD Consult: A consultation was requested by Vashti Orozco MD for an opinion regarding Bilateral Testicle pain. My final recommendations communicated back to e requesting physician by way of shared Medical record. CHIEF COMPLAINT: Bilateral Testicle pain. HPI: This is a 38 year old male, who has Bilateral Testicle pain. , which started in 2019, and involves the Testicular (both) Patient states this mild in severity and mild in quality, an d is happening intermittently Aggravating factors: No , Alleviating Factors: No . And the patient denies having Fever, Chills, Nausea and Vomiting VOIDING SYMPTOMS: All GUROS reviewed, all were negative ALLERGY: ALLERGIES Allergen Reactions - Simvastatin Other: See Comments Unsure of reaction MEDICATIONS: Current Outpatient Medications Medication Sig Dispense Refill - levothyroxine (SYNTHROID) 50 mcg tablet Take 1 table t by mouth once daily. Take on empty stomach. For Thyroid. 30 tablet 2 - Cholecalciferol, Vitamin D3, 1,000 unit cap Take 1 capsule by mouth once daily. 0 - BUDESONIDE (PULMICORT INHALATION) Inhale as instructed. - albuterol HFA 90 mcg/actuation inhaler Inhale 2 Puffs as instructed every 6 hours as needed for Wheezing/Shortness of Breath. 1 Inhaler 2 - multivitamin tablet Take 1 tablet by mouth once daily. - cyclobenzaprine (FLEXERIL) 10 mg tablet Take 1 table t by mouth three times daily as needed. 30 tablet 2 - omeprazole (PRILOSEC) 20 mg capsule Take 1 capsule by mout h daily before breakfast. 1/2 hr before meal. (Patient not taking: Reported on 03/31/2019 ) 30 capsule 1 No current facility-administered medications for this visit. Past Medical History PAST MEDICAL HISTORY Diagnosis Date - Asthma - Depression - Heart abnormality - NEGATIVE MEDICAL HISTORY - Obesity - Thyroid activity decreased Past Surgical History PAST SURGICAL HISTORY Procedure Laterality Date - COLONOSCOP W/ OR W/O BRSH SPEC 06/02/15 Colonoscopy - EGD W/O OR W/BRUSH/WASH 06/02/15 EGD - LEFT HEART CATH,PERCUTANEOUS 06/09/14 Cardiac cath, L heart- [place] - VASECTOMY 06/21/10 Family History FAMILY HISTORY Problem Relation Age of Onset - Coronary Artery Disease Mother - Coronary Artery Disease Maternal Grandfather - None Father - COPD Maternal Grandmother - COPD Maternal Grandfather REVIEW OF SYSTEMS: General: General: Well developed, well nourished. No acute d istress HEENT: Negative for sore throat, difficulty swallowing. Negative for frequent or significant headaches, changes in vision or hearing. Cardiovascular: No history of cardiovascular symtoms or prob lems. No history of angina, CHF, SC, cardiac surgery of stents. Respiratory: Negative for current cough, dyspnea. No hx of pneumonia in the past six weeks Gastrointestinal: No history of GERD, PU D, abd pain, difficulty swallowing, GI bleed. Renal: Negative for renal failure and No history of dialysis Musculoskeletal: Negative fo r joint pain or swelling, back pain or muscle pain. Skin: Negative for lesions, rash and itching. Psychological: No history of psychiatric symptoms or problem s. Neurologic: No history of TIA's, stroke, PRESCHOOL TEACHER AIDE tumor, impaired sensorium, hemiplegia, paraplegia or quadriplegia. No neuro logical symptoms or problems. Hematology/Oncology: No history of bleeding or clotting di sorder. Pt is not taking anti-coagulation or platelet medications. No hi story of hematological symptoms or problems. Endocrine: No history of endocrinological symtoms or problem s No history of DM; has not taken steroids w/in past 30 days. Negative for excessive sweating, thirst or hunger Physical Examination: Blood pressure 130/84, pulse 80, temperature 36.8 ?C (98.2 ?F), temperature source Temporal Artery, resp . rate 16, weight 117.7 kg (259 lb 6.4 oz), SpO2 98 %. General Appearance/ Constitutional: Well develop ed, well nourished, and in no apparent distress HEENT: Not examined Neck: Lymph Nodes: Not examined Cardiac: Normal Breast: Not examined Pulmonary: Ascultation: Normal Effort: Normal GI: Soft and Non-tender Peripheral Vascular: Not examined Extremities: Cyanosis absent and Edema absent Skin: Not examined Neurologic: Grossly non-focal and Alert and oriented (MALE): Penis: Normal without external lesions Testicles: bilaterally and normal Scrotum: Normal Results for orders placed or performed in visit on 11/05/19 UA DIP, URINE (POC) Result Value Ref Range GLUCOSE UA (POCT) Negative Negative mg/dL BILIRUBIN UA (POCT) Negative Negative KETONE UA (POCT) Negative Negative mg/dL SPECIFIC GRAVITY UA (POCT) 1.015 1.005 - 1.030 HEMOGLOBIN/BLOOD UA (POCT) Negative Negative PH UA (POCT) 7.0 4.5 - 8.0 PROTEIN UA (POCT) Negative Negative mg/dL UROBILINOGEN UA (POCT) 0.2 Normal E.U./dL NITRITE UA (POCT) Negative Negative LEUKOCYTES UA (POCT) Negative Negative COLOR UA (POCT) Yellow CLARITY UA (POCT) Clear RADIOLOGY: US Scrotum - [facility] report - Normal - scanned into EPIC IMPRESSION / PLAN: > History of Bilateral Testicle pain. > Given Bactrim at Urgent Care and seems to have improved gr eatly > Discussed id this flares up and contin ues that I would need to see him again and determine if pelvic floor is in spasm and the need for P FPT I spent approximately 40 minutes in this visit, with more than 50% of the time devoted to patient discussion, counseling, review of records and/or coordination of care. VIJAY Quiles, [place], PA-C Referring Provider: SELF [200] Allergies As of Date: 11/05/2019 Noted Allergy Reaction SIMVASTATIN 11/05/2019 14 - Other: See Comments Comments: Unsure of reaction Date Reviewed: 11/05/2019 Reviewed by: Lyudmila Talbot Ma - Fully Assessed Reason for Visit: ED Follow-up [821] Testicular Pain [823] Primary Visit Diagnosis:Testicular pain [N50.819] Order(s):UA DIP, URINE (POC) [[id number]] Order #: [id number] . #:[id number] Prescriptions as of 11/05/2019 Sig: LEVOTHYROXINE 50 MCG TABLET Take 1 tablet by mouth once d* CHOLECALCIFEROL (VITAMIN D3) * Take 1 capsule by mouth once * PULMICORT INHALATION Inhale as instructed. ALBUTEROL SULFATE HFA 90 MCG/* Inhale 2 Puffs as instructed * * MULTIVITAMIN TABLET Take 1 tablet by mouth once d* CYCLOBENZAPRINE 10 MG TABLET Take 1 tablet by mouth three * OMEPRAZOLE 20 MG CAPSULE,OMER* Take 1 capsule by mouth daily * Patient not taking: Reported on 03/31/2019 Problem List As Of Date 11/05/2019 Noted Resolved Sterilization [Z30.2] 06/05/2010 Depression [F32.9] 07/31/2012 Adjustment disorder [F43.20] 07/31/2012 Sleep difficulties [G47.9] 08/18/2012 Kienbock's avascular necrosis of lunate, adult *03/28/2015 Subclinical hypothyroidism [E03.9] 05/03/2015 06/23/2018 Mild persistent asthma [J45.30] 05/24/2015 Hypothyroidism [E03.9] 05/24/2015 Constitutional obesity [E66.8] 05/24/2015 Former smoker [Z87.891] 05/24/2015 Encounter Status:Closed by SHARLENE DE LA ROSA PA-C on 11/05/19 tsh on 2019-03-31 TSH Qn 4.650 0.270-4.200 uU/mL High 03-31-2019 [facility] ([id number]) Comment: Performed By: #### CMP, LIPB , TSH ####[facility] [id number] [place] [address] [phone] progress on 2019-03 PROGRESS HNO ID: [id number] Normal 03-31-2019 [facility] Author: Brain Le (James) Smooth [place] ([id number]) Service: ? Author Type: Physician Family Law Paralegal Type: Progress Notes Filed: 03/31/2019 5:21 PM Note Text: BP 120/94 Pulse 80 Resp 16 Wt 121.1 kg (267 lb) BMI 38.86 kg/m? This Team Access Model visit is a walk in encounter. It requ ired patient-provider interaction for the medical decision making as documented below. 38 year old male with c/o Shoulder pain: L anterior shoulder pain near armpit and under collarbone th at started a few nights ago. No specific injury. Pain is sharp and achy . Used Biofreeze, ice and heat with temporary relief. No meds. Layi ng on it, picking up objects makes it worse. Not much pain when not mo ving. Rates pain at 5-6/10 when not moving, a 7-8/10 when moving. Back pain: In February noticed the pain between shoulder blades. Pain ra diates to shoulders, neck and to front around armpit and under collar bone. No specific injury. Had Flexiril in the past. Used Biofreeze, i ce and heat with temporary relief. Rates pain 6-7/10. Hurts the worst si tting and driving. Lying flat on back makes it better. No numbness, tingling, loss of sensation. HISTORIES FAMILY HISTORY Problem Relation Age of Onset - Coronary Artery Disease Mother - Coronary Artery Disease Maternal Grandfather - None Father - COPD Maternal Grandmother - COPD Maternal Grandfather PAST MEDICAL HISTORY Diagnosis Date - Asthma - Depression - Heart abnormality - NEGATIVE MEDICAL HISTORY - Obesity - Thyroid activity decreased PAST SURGICAL HISTORY Procedure Laterality Date - COLONOSCOP W/ OR W/O BRSH SPEC 06/02/15 Colonoscopy - EGD W/O OR W/BRUSH/WASH 06/02/15 EGD - LEFT HEART CATH,PERCUTANEOUS 06/09/14 Cardiac cath, L heart- Moodispaw - VASECTOMY 06/21/10 Social History Tobacco Use - Smoking status: Former Smoker Packs/day: 1.00 Years: 8.00 Pack years: 8.00 Types: Cigarettes Last attempt to quit: 04/25/2005 Years since quittin.9 - Smokeless tobacco: Never Used Substance Use Topics - Alcohol use: No - Drug use: No ACTIVE PROBLEM LIST Sterilization Depression Adjustment Disorder Sleep Difficulties Kienbock's Avascular Necrosis of Lunate, Adult Mild Persistent Asthma Hypothyroidism Constitutional Obesity Former Smoker Current Outpatient Medications Medication Sig Dispense Refill - levothyroxine (SYNTHROID) 25 mcg tablet Take 1 tablet by m outh once daily. Take on empty stomach. For thyroid. 90 tablet 1 - Cholecalciferol, Vitamin D3, 1,000 unit cap Take 1 capsule by mouth once daily. 0 - albuterol HFA 90 mcg/actuation inhaler Inhale 2 Puffs as i nstructed every 6 hours as needed for Wheezing/Shortness of Breath. 1 Inhaler 2 - multivitamin tablet Take 1 tablet by mouth once daily. - omeprazole (PRILOSEC) 20 mg capsule Take 1 capsule by mout h daily before breakfast. 1/2 hr before meal. (Patient not taking: Reported on 03/31/2019 ) 30 capsule 1 - cyclobenzaprine (FLEXERIL) 10 mg tablet Take 1 tablet by m rufus three times daily as needed. (Patient not taking: Reported on 03/20 ) 30 tablet 0 - BUDESONIDE (PULMICORT INHALATION) Inhale as instructed. No current facility-administered medications for this visit. There are no preventive care reminders to display for this p atient. EXAM: BP 120/94 Pulse 80 Resp 16 Wt 121.1 kg (267 lb) BMI 38.86 kg/m? Pleasant adult male in no acute distress. Alert and oriented all spheres. Normal affect and cognition. Speech normal. No deficits to l earning or comprehension. Skin warm, dry, pink to lips and nailbeds. Normal turgor. Respirations regular and unlabored. Extrem: no clubbing or cyanosis. Edema: none. Extremities ar e warm and pink with prompt capillary refill. Shoulder: Pain along pectoralis major muscle and biceps tend on. +Mcnally's test for pain that is not relieved with supination. Negative Yeargson's, Lift off, Nees and Melendrez tests. Negative drop arm. AROM in tact b/l with no pain. Back: No specific pain elicited upon palpation. Limited flex ion. + TTPs in bilateral neck and upper shoulders, mid thoracic w ith flexion restriction in ribs. Some pain with rotation left and right radiating to left side. Pain from 6-7 to 4/10 no where near as bad. OMT: myofascial release to TTPS. HVLA to cervical , thoracic and rib ASSESSMENT/PLAN: 1. Neck pain - ICD9: 723.1, ICD10: M54.2 (primary diagnosis) 2. Acute bilateral thoracic back pain - ICD9: 724.1, ICD10: M54.6 3. Cervicothoracic somatic dysfunction - ICD9: 739.1, ICD10: M99.01 4. Somatic dysfunction of rib - ICD9: 739.8, ICD10: M99.08 Ice/ moist heat, lineaments, OTC analgesics as needed,. Stre tching and posture reviewed. Flexeril , naprosyn as needed. F/u prn if returns M Rey Rebollar PA-C lipid panel, basic on 2019-03-31 Cholesterol [Mass/Vol] 186 <200 mg/dL Normal 019 [facility] ([id number]) Comment: Result Comment: <200 mg/dL, Desirable 200-239 mg/dL, Borderline hi gh >239 mg/dL, High Performed By: #### CMP, LIPB , TSH ####[place] [address] [phone] Cholesterol in HDL [Mass/Vol] 39 >39 mg/dL Low 03-31-2019 [facility] ([id number]) Comment: Result Comment: 40-59 mg/dL, Acceptable >59 mg/dL, High: Negative ri sk factor for coronary heart disease <40 mg/dL, Low: Positive ris k factor for coronary heart disease Performed By: #### CMP, LIPB , TSH ####[place] [address] [phone] Cholesterol in LDL 119 <100 mg/dL High 03-31-2019 [facility] [Mass/Vol] ([id number]) Comment: Result Comment: <100 mg/dL, Optimal 100-129 mg/dL, Near optimal/ above optimal 130-159 mg/dL, Borderline hi gh 160-189 mg/dL, High >189 mg/dL, Very high Secondary prevention optimal LDL Cholesterol levels are recommended to be < 70 mg/dL Performed By: #### CMP, LIPB , TSH ####[place] [address] [phone] Fasting Time 12 hrs Normal 03-31-2019 [facility] ([id number]) Comment: Performed By: #### CMP, LIPB , TSH ####[place] [address] [phone] LDL:HDL Ratio 3.05 <2.54 High 03-31-2019 [facility] ([id number]) Comment: Result Comment: Reference: 1. National Cholesterol Educ ation Program ATP III Guideline At-A-Glance Quick Desk Reference: National Heart, Lung, and Blood [place]. National Institutes of Health. 2001: NIH Publication No. 01-3305. 2. An International Atherosc lerosis Society position paper: global recommendations for the management of dyslipidemia: executive summary, Atherosclerosis. 2014: 232(2):410-413. Performed By: #### CMP, LIPB , TSH ####[place] [id number] [place] [address] [phone] Non HDL Cholesterol 147 <130 mg/dL High 03-31-2019 [facility] ([id number]) Comment: Result Comment: <130 mg/dL, Optimal 130-159 mg/dL, Near optimal/ above optimal 160-189 mg/dL, Borderline hi gh 190-219 mg/dL, High >219 mg/dL, Very high Secondary prevention optimal non HDL Cholesterol levels are recommended to be < 100 mg/dL Performed By: #### CMP, LIPB , TSH ####[place] [address] [phone] TC:HDL Ratio 4.77 <5.10 Normal 03-31-2019 [facility] ([id number]) Comment: Performed By: #### CMP, LIPB , TSH ####[place] [address] [phone] Triglyceride [Mass/Vol] 140 <150 mg/dL Normal 2018 [facility] ([id number]) Comment: Result Comment: <150 mg/dL, Normal 150-199 mg/dL, Borderline hi gh 200-499 mg/dL, High >499 mg/dL, Very high Performed By: #### CMP, LIPB , TSH ####[place] [address] [phone] VLDL Cholesterol 28 <30 mg/dL Normal 03-31-2019 [facility] ([id number]) Comment: Performed By: #### CMP, LIPB , TSH ####[place] [id number] [place] [address] [phone] comp metabolic panel on 2019-03-31 Albumin [Mass/Vol] 4.5 3.9-4.9 g/dL Normal 03-31-2019 [facility] ([id number]) Comment: Performed By: #### CMP, LIPB , TSH #### [facility] [address] [place], [place] [address] ALP [Catalytic activity/Vol] 56 38-113 U/L Normal 1 05-31-2018 [facility] ([id number]) Comment: Performed By: #### CMP, LIPB , TSH #### [facility] [address] [place], [place] [address] ALT [Catalytic activity/Vol] 74 10-54 U/L High 1 05-31-2018 [facility] (58666) Comment: Performed By: #### CMP, LIPB , TSH #### [facility] [address] [place], [place] [address] Anion gap [Moles/Vol] 11 9-18 mmol/L Normal 03-31-20 19 [facility] ([id number]) Comment: Performed By: #### CMP, LIPB , TSH #### [facility] [address] [place], [place] [address] AST [Catalytic activity/Vol] 43 14-40 U/L High 1 05-31-2018 [facility] ([id number]) Comment: Performed By: #### CMP, LIPB , TSH #### [facility] [address] [place], [place] [address] Bilirubin [Mass/Vol] 0.6 0.2-1.3 mg/dL Normal 9 [facility] ([id number]) Comment: Performed By: #### CMP, LIPB , TSH #### [facility] [address] [place], [place] [address] Calcium [Mass/Vol] 9.5 8.5-10.2 mg/dL Normal 03-31-2019 [facility] (60076) Comment: Performed By: #### CMP, LIPB , TSH #### [facility] [address] [place], [place] [address] Chloride [Moles/Vol] 98 97-105 mmol/L Normal 9 [facility] ([id number]) Comment: Performed By: #### SHEYLA BROWNB , TSH #### [facility] [address] [place] [address] CO2 [Moles/Vol] 26 22-30 mmol/L Normal 03-31-2019 [facility] ([id number]) Comment: Performed By: #### SHEYLA BROWNB , TSH #### [facility] [address] [place] [address] Creatinine [Mass/Vol] 0.79 0.73-1.22 mg/dL Normal 03-31-20 19 [facility] (03282) Comment: Performed By: #### SHEYLA BROWNB , TSH #### [facility] [address] [place] [address] eGFR- Amer. >60 Normal 03-31-2019 [facility] ([id number]) Comment: Performed By: #### SHEYLA BROWNB , TSH #### [facility] [address] [place] [address] GFR/1.73 sq M predicted >60 mL/min/{1.73_m2} Normal 03-31-2019 [facility] among non-blacks [facility] ([id number]) (S/P/Bld) [Vol rate/Area] Comment: Result Comment: eGFR (Estima crispin GFR) Units of measure: mL/min/1.73 meters squared eGFR is derived from the ree xpressed MDRD Study equation using the following parameters: serum creatinine, age, gender and race. The creatinine assay has been calibrated to be traceable to IDMS. An eGFR <60 mL/min/1.73m2 fo r >3 months is consistent with chronic kidney disease. Refer to KDOQI guidelines for clinical interpretation. In patients with unstable re nal function, e.g. those with acute kidney injury, the eGFR may not accurately reflect actual GFR. Performed By: #### STEPHANIE LIPB , TSH #### [facility] [address] [place] [address] Glucose [Mass/Vol] 100 74-99 mg/dL High 03-31-2019 [facility] ([id number]) Comment: Result Comment: The [place] Diabetes Association (ADA) provides guidance for cutoff values for fasting glucose and random glucose. The ADA defines fasting as no caloric intake for at least 8 hours. Fas ting plasma glucose results between 100 to 125 mg/dL indicate increased risk for diabetes (prediabetes). Fasting plasma glucose resul ts greater than or equal to 126 mg/dL meet the criteria for diagnosis of diabetes. In the absence of unequivocal hyperglycemia, results should be confirmed by repeat testing. In a patient with classic s ymptoms of hyperglycemia or hyperglycemic crisis, random plasma glucose results greater than or equal to 200 mg/dL meet the criteria for diagnosis of diabetes. Reference: Standards of [facility] Care in Diabetes 2016, [place] Diabetes Association. Diabetes Care. 2016.39(Suppl 1). Performed By: #### CMP, LIPB , TSH #### [facility] [address] [place] [address] Potassium [Moles/Vol] 4.0 3.7-5.1 mmol/L Normal 03-31-20 19 [facility] ([id number]) Comment: Performed By: #### CMP, LIPB , TSH #### [facility] [address] [place], [place] [address] Protein [Mass/Vol] 7.6 6.3-8.0 g/dL Normal 03-31-2019 [facility] ([id number]) Comment: Performed By: #### CMP, LIPB , TSH #### [facility] [address] [place], [place] [address] Sodium [Moles/Vol] 135 136-144 mmol/L Low 03-31-2019 [facility] ([id number]) Comment: Performed By: #### CMP, LIPB , TSH #### [facility] [address] [place], [place] [address] Urea nitrogen [Mass/Vol] 9 9-24 mg/dL Normal 03-31 [facility] (80784) Comment: Performed By: #### CMP, LIPB , TSH #### [facility] [address] [place] [id number] cnov on 2019-03-31 CNOV Office Visit (FAMPWS) Normal 03-31-20 [place] [facility] LONNIE BOB ([id number]) 1980 [facility] Date Time Provider Department ([id number]) 03/31/19 9:20 AM [facility]AR[facility] During your visit today, we recorded the following informati on about you: Pulse Respiration Blood pressure Weight 80/minute 16/minute 120/94 121.1 kg Brain Rebollar PA-C 03/31/2019 5:21 PM Signed BP 120/94 Pulse 80 Resp 16 Wt 121.1 kg (267 lb) BMI 38.86 kg/m? This Team Access Model visit is a walk in encounter. It requ ired patient-provider interaction for the medical decision making as documented below. 38 year old male with c/o Shoulder pain: L anterior shoulder pain near armpit and under c ollarbone that started a few nights ago. No specific injury. Pain is sharp and ach y. Used Biofreeze, ice and heat with temporary reli ef. No meds. Laying on it, picking up objects makes it worse. Not much pain when not moving. Rates pain at 5-6/10 when not moving, a 7-8/10 when moving. Back pain: In February noticed the pain between shoulder blades. Pain ra diates to shoulders, neck and to front around arm pit and under collarbone. No specific injury. Had Flexiril in the past. Used Biofreeze , ice and heat with temporary relief. Rates pain 6-7/10. Hurts the worst sitti ng and driving. Lying flat on back makes it better. No numbness, tingling, loss of sensation. HISTORIES FAMILY HISTORY Problem Relation Age of Onset - Coronary Artery Disease Mother - Coronary Artery Disease Maternal Grandfather - None Father - COPD Maternal Grandmother - COPD Maternal Grandfather PAST MEDICAL HISTORY Diagnosis Date - Asthma - Depression - Heart abnormality - NEGATIVE MEDICAL HISTORY - Obesity - Thyroid activity decreased PAST SURGICAL HISTORY Procedure Laterality Date - COLONOSCOP W/ OR W/O BRSH SPEC 06/02/15 Colonoscopy - EGD W/O OR W/BRUSH/WASH 06/02/15 EGD - LEFT HEART CATH,PERCUTANEOUS 06/09/14 Cardiac cath, L heart- Moodispaw - VASECTOMY 06/21/10 Social History Tobacco Use - Smoking status: Former Smoker Packs/day: 1.00 Years: 8.00 Pack years: 8.00 Types: Cigarettes Last attempt to quit: 04/25/2005 Years since quittin.9 - Smokeless tobacco: Never Used Substance Use Topics - Alcohol use: No - Drug use: No ACTIVE PROBLEM LIST Sterilization Depression Adjustment Disorder Sleep Difficulties Kienbock's Avascular Necrosis of Lunate, Adult Mild Persistent Asthma Hypothyroidism Constitutional Obesity Former Smoker Current Outpatient Medications Medication Sig Dispense Refill - levothyroxine (SYNTHROID) 25 mcg tablet Take 1 table t by mouth once daily. Take on empty stomach. For thyroid. 90 tablet 1 - Cholecalciferol, Vitamin D3, 1,000 unit cap Take 1 capsule by mouth once daily. 0 - albuterol HFA 90 mcg/actuation inhaler Inhale 2 Puffs as instructed every 6 hours as needed for Wheezing/Shortness of Breath. 1 Inhaler 2 - multivitamin tablet Take 1 tablet by mouth once daily. - omeprazole (PRILOSEC) 20 mg capsule Take 1 capsule by mout h daily before breakfast. 1/2 hr before meal. (Patient not taking: Reported on 03/31/2019 ) 30 capsule 1 - cyclobenzaprine (FLEXERIL) 10 mg tablet Take 1 table t by mouth three times daily as needed. (Patient not taking: Reported on 03/31/2019 ) 30 tablet 0 - BUDESONIDE (PULMICORT INHALATION) Inhale as instructed. No current facility-administered medications for this visit. There are no preventive care reminders to display for this p atient. EXAM: BP 120/94 Pulse 80 Resp 16 Wt 121.1 kg (267 lb) BMI 38.86 kg/m? Pleasant adult male in no acute distress. Alert and oriented all spheres. Normal affect and cognition. Speech normal. No deficits to l earning or comprehension. Skin warm, dry, pink to lips and nailbeds. Normal turgor. Respirations regular and unlabored. Extrem: no clubbing or cyanosis. Edema: none. Extremities are warm and pink with prompt capillary refill. Shoulder: Pain along pectoralis major mu scle and biceps tendon. +Mcnally's test for pain that is not relieved with supination. N egative Yeargson's, Lift off, Nees and Melendrez tests. Negative drop arm. AROM intact b/l w ith no pain. Back: No specific pain elicited upon palpation. Limited flex ion. + TTPs in bilateral neck and upper shoulders, mid thoracic w ith flexion restriction in ribs. Some pain with rotation lef t and right radiating to left side. Pain from 6-7 to 4/10 no where near as bad. OMT: myofascial release to TTPS. HVLA to cervical , thoracic and rib ASSESSMENT/PLAN: 1. Neck pain - ICD9: 723.1, ICD10: M54.2 (primary diagnosis) 2. Acute bilateral thoracic back pain - ICD9: 724.1, ICD10: M54.6 3. Cervicothoracic somatic dysfunction - ICD9: 739.1, ICD10: M99.01 4. Somatic dysfunction of rib - ICD9: 739.8, ICD10: M99.08 Ice/ moist heat, lineaments, OTC analges ics as needed,. Stretching and posture reviewed. Flexeril , naprosyn as needed. F/u prn if returns Brain Rebollar PA-C Referring Provider: SELF [[id number]] Allergies As of Date: 03/31/2019 (No Known Allergies) Date Reviewed: 03/31/2019 Reviewed by: Brain Le (James) Smooth - Fully Assessed Reason for Visit: Follow Up [171] Cmt: shoulder AND upper back pain from Primary Visit Diagnosis:Neck pain [M54.2] Other Visit Diagnoses:Acute bilateral thoracic back pain [M5 4.6] Cervicothoracic somatic dysfunction [M99.01] Somatic dysfunction of rib [M99.08] Order(s):cyclobenzaprine (FLEXERIL) 10 mg tabletTake 1 tablet by mouth three times daily as needed.Disp: 30 tabletRfl: 2 Prescriptions as of 03/31/2019 Sig: LEVOTHYROXINE 25 MCG TABLET Take 1 tablet by mouth once d* CHOLECALCIFEROL (VITAMIN D3) * Take 1 capsule by mouth once * ALBUTEROL SULFATE HFA 90 MCG/* Inhale 2 Puffs as instructed * * MULTIVITAMIN TABLET Take 1 tablet by mouth once d* CYCLOBENZAPRINE 10 MG TABLET Take 1 tablet by mouth three * OMEPRAZOLE 20 MG CAPSULE,OMER* Take 1 capsule by mouth daily * Patient not taking: Reported on 03/31/2019 PULMICORT INHALATION Inhale as instructed. Problem List As Of Date 03/31/2019 Noted Resolved Sterilization [Z30.2] 06/05/2010 Depression [F32.9] 07/31/2012 Adjustment disorder [F43.20] 07/31/2012 Sleep difficulties [G47.9] 08/18/2012 Kienbock's avascular necrosis of lunate, adult *03/28/2015 Subclinical hypothyroidism [E03.9] 05/03/2015 06/23/2018 Mild persistent asthma [J45.30] 05/24/2015 Hypothyroidism [E03.9] 05/24/2015 Constitutional obesity [E66.8] 05/24/2015 Former smoker [Z87.891] 05/24/2015 Prescriptions ordered this encounter Disp Refills Start End CYCLOBENZAPRINE 10 MG TABLET 30 t* 2 03/31/2019 Route: ORAL Sig: Take 1 tablet by mouth three times daily as needed. Medications Discontinued During This Encounter cyclobenzaprine (FLEXERIL) 10 mg tab* 30 t* 0 02/18/201903/20 Route: ORAL Sig: Take 1 tablet by mouth three times daily as needed. Patient not taking: Reported on 03/31/2019 Disc: Reason for discontinue is not on file. Encounter Status:Closed by Brain REBOLLAR PA-C on 9 xr chest 2v frontal/lat on 2019-02-18 XR CHEST 2V * * *Final Report* * * Normal 02-18 [facility] FRONTAL/LAT DATE OF EXAM: Feb 18 2019 2:31PM [place] WOX 5291 - XR CHEST 2V FRONTAL/LAT / ([id number]) PROCEDURE REASON: multiple diagnoses * * * * Physician Interpretation * * * * EXAMINATION: CHEST RADIOGRAPH (2 VIEW FRONTAL and LATERAL) CLINICAL HISTORY: Chest pain, unspecified type Upper back pa in MQ: XC2_5 Comparison: None RESULT: Lines, tubes, and devices: None. Lungs and pleura: No focal consolidation, pleural effusion o r pneumothorax. Cardiomediastinal silhouette: Within normal limits. Other: No acute osseous abnormality. IMPRESSION: No acute radiographic abnormality. Exchange Clerk: PSCB Transcribe Date/Time: Feb 18 2019 2:49P Dictated by : NITESH CARVAJAL MD This examination was interpreted and the report reviewed and electronically signed by: NITESH CARVAJAL MD on Feb 18 2019 2:50PM EST [id number] tsh on 2019-02-18 TSH Qn 7.110 0.400-5.500 uU/mL High 02-18-2019 [facility] ([id number]) Comment: Performed By: #### BMP, CBCD IF, TSH #### [facility] [address] [place] [address] progress on 2019-02 PROGRESS HNO ID: [id number] Normal 02-18-2019 [facility] Author: Earnestine FalconRtMesfin Sy ([id number]) Service: ? Author Type: Senior Data Architect Type: Progress Notes Filed: 02/18/2019 2:31 PM Note Text: Radiology Service Progress Note PATIENT NAME: Lonnie Bob DATE OF SERVICE: February 18, 2019 TIME: 2:24 PM PATIENT IDENTITY VERIFICATION COMPLETED USING TWO (2) METHOD S: Name and Date of confirmed by patient verbally. PATIENT GENDER DATA: Male PATIENT RELEVANT IMPLANT DATA REVIEWED: Not Applicable RADIOLOGY DEPARTMENT: General X-ray: Exam(s) Completed: Ches t X-Ray PERIPHERAL IV DATA: Not applicable SIGNED BY: RT Wendi February 18, 2019 2:24 PM PROGRESS HNO ID: [id number] Normal 02-18-2019 [facility] Author: Vashti Orozco [place] ([id number]) Service: ? Author Type: Physician Type: Progress Notes Filed: 02/18/2019 2:06 PM Note Text: Patient presents with: Pain: upper back, into both shoulders AND chest area on AND off X 3 wks HPI: Patient presents today for office visit for acute visit . This Team Access Model visit is a walk in encounter. It requ ired patient-provider interaction for the medical decision making as documented below. Started about three weeks ago. Began in the thoracic of the back bilaterally and then moved to shoulders and now in the front of the chest since last week. Naproxen and rest helps. Laying on it and sitting make it painful. Not really pleuritic. No cough. No trauma. No unusual activities. No swelling or palpitations. Has been having a lot more reflux Gets lightheaded at times, is usually when uncomfortable. No tinnitus. Occasional headaches. No focal neuro complaints. He did see cardiology and had a stress test in 2018 and was told his stress was ok. This is different. Having a lot of stress. MEDICATIONS: Current Outpatient Medications: Cholecalciferol, Vitamin D3, 1,000 unit cap Take 1 capsule b y mouth once daily. albuterol HFA 90 mcg/actuation inhaler Inhale 2 Puffs as ins tructed every 6 hours as needed for Wheezing/Shortness of Breath. multivitamin tablet Take 1 tablet by mouth once daily. cyclobenzaprine (FLEXERIL) 10 mg tablet Take 1 tablet by rhea th three times daily as needed. (Patient not taking: Reported on 02/18/2019 ) BUDESONIDE (PULMICORT INHALATION) Inhale as instructed. No current facility-administered medications for this visit. ALLERGIES: ALLERGIES No Known Allergies PAST MEDICAL HISTORY Diagnosis Date - Asthma - Depression - Heart abnormality - NEGATIVE MEDICAL HISTORY - Obesity - Thyroid activity decreased PAST SURGICAL HISTORY Procedure Laterality Date - COLONOSCOP W/ OR W/O BRSH SPEC 06/02/15 Colonoscopy - EGD W/O OR W/BRUSH/WASH 06/02/15 EGD - LEFT HEART CATH,PERCUTANEOUS 06/09/14 Cardiac cath, L heart- Moodispaw - VASECTOMY 06/21/10 FAMILY HISTORY Problem Relation Age of Onset - Coronary Artery Disease Mother - Coronary Artery Disease Maternal Grandfather - None Father - COPD Maternal Grandmother - COPD Maternal Grandfather Social History Socioeconomic History Marital status: Spouse name: Not on file Number of children: 2 Years of education: Not on file Highest education level: Not on file Occupational History 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 Social Needs Financial resource strain: Not on file Food insecurity: Worry: Not on file Inability: Not on file Transportation needs: Medical: Not on file Non-medical: Not on file Tobacco Use Smoking status: Former Smoker Packs/day: 1.00 Years: 8.00 Pack years: 8 Types: Cigarettes Quit date: 04/25/2005 Years since quittin.8 Smokeless tobacco: Never Used Substance and Sexual Activity Alcohol use: No Drug use: No Sexual activity: Yes Partners: Female Lifestyle Physical activity: Days per week: Not on file Minutes per session: Not on file Stress: Not on file Relationships Social connections: Talks on phone: Not on file Gets together: Not on file Attends congregation service: Not on file Active member of club or organization: Not on file Attends meetings of clubs or organizations: Not on file Relationship status: Not on file Intimate partner violence: Fear of current or ex partner: Not on file Emotionally abused: Not on file Physically abused: Not on file Forced sexual activity: Not on file Other Topics Concerns: Not on file Social History Narrative with two children Reviewed current medications, allergies, past medical histor y, surgical history, family history and social history today. REVIEW OF SYSTEMS All other reviewed and negative other than HPI. HEALTH MAINTENANCE: Reviewed health maintenance issues today and recommended the following in detail. There are no preventive care reminders to display for this p atient. VITALS: BP 102/72 Pulse 80 Resp 18 Wt 119.7 kg (264 lb) BMI 38.43 kg/m? BP w/Orthostatic Vitals Date and Time Orthostatic BP Orthostatic Pulse BP Pulse BP P osition BP Site BP Cuff Size 02/18/19 1357 122/92 88 -- -- Standing Left Arm Large Adult 02/18/19 1356 118/82 81 -- -- Supine Left Arm Large Adult 02/18/19 1325 -- -- 102/72 80 -- -- -- Last 4 Encounter Wt Readings: Date: Wt: 02/18/2019 119.7 kg (264 lb) 06/23/2018 117.8 kg (259 lb 9.6 oz) 08/05/2017 109.8 kg (242 lb) 09/11/2016 113.4 kg (250 lb) PHYSICAL EXAMINATION: General appearance: Well appearing, alert, in no acute distr ess, well-hydrated, well nourished. Skin: Skin color, texture, turgor normal, no suspicious rash es or lesions Head: Normocephalic, no masses, lesions, tenderness or abnor malities Eyes: Anicteric sclera. Pupils are equally round and reactiv e to light. Extraocular movements are intact. Ears: External ears normal, canals clear Nose/Sinuses: Nares normal, septum midline, mucosa normal, n o drainage or sinus tenderness Oropharynx: Lips, mucosa, and tongue normal, teeth and gums normal, oropharynx normal Neck: Supple, no adenopathy; thyroid symmetric, normal size, no bruits Chest wall: tender on palpation, especially in the anterior chest wall. Laughing even made it worse Lungs: lungs clear to auscultation. No wheezing, rhonchi, ra les Heart: RRR without murmur, gallop, or rubs. No ectopy Abdomen: Normal abdominal exam, Abdomen soft, non-tender. Pavel wel sounds normal. No masses, organomegaly Extremities: No deformities, edema, skin discoloration, club kailyn or cyanosis. Good capillary refill. Musculoskeletal: No joint swelling, deformity, or tenderness Peripheral pulses: Normal Neuro: Gait normal. Reflexes normal and symmetric. Sensation grossly intact., Negative findings: speech normal, cranial nerves 2- 12 intact, muscle tone normal ASSESSMENT/PLAN: 1. Chest pain, unspecified type - ICD9: 786.50, ICD10: R07.9 (primary diagnosis) - appears musculoskeletal. Ice prn Flexeril. Discussed risks and benefits of new medication wit h the patient. Advised them to call if any side effects or questions. - Red flags for re-assessment reviewed with patient in [facility] in three to four weeks. - ECG COMPLETE - XR CHEST 2V FRONTAL/LAT 2. Upper back pain - ICD9: 724.5, ICD10: M54.9 - as above. - ECG COMPLETE - XR CHEST 2V FRONTAL/LAT 3. Lightheaded - ICD9: 780.4, ICD10: R42 - push fluids. Check labs. - CBC + DIFF - BASIC METABOLIC PNL 4. GERD without esophagitis - ICD9: 530.81, ICD10: K21.9 - try omeprazole. Discussed risks and benefits of new medica tion with the patient. Advised them to call if any side effects or questio ns. Vashti Orozco MD ecg complete on 01-27-02 ECG COMPLETE NAME : LONNIE BOB Normal [facility] PID : [id number] Claudio mishra ([id number]) : 1980 Gender : Male Race : ORD : [id number] Procedure Date : Feb 18 2019 13:46:47 Edit Date : Apr 09 2019 13:12:58 Diagnosis:NORMAL SINUS RHYTHM NORMAL ECG Confirmed by MD LE GREGORY () on 04/09/2019 1:11:3 9 PM Ventricular Rate : 80 BPM Atrial Rate : 80 BPM P-R Interval : 140 ms QRS Duration : 100 ms Q-T Interval : 386 ms QTC Calculation(Bazett) : 445 ms P Heyworth : 11 degrees R Heyworth : 17 degrees T Heyworth : 2 degrees Test Reason : Location : 185 : [facility] Overread By : MD LE GREGORY Edited By : MD LE GREGORY Referred By : VASHTI OROZCO Acquired by : bautista BENITEZ on 2019-02-18 [place] Office Visit (FAMJaniceWS) Normal 02-19-20 [place] [facility] LONNIE BOB ([id number]) 1980 [facility] Time Provider Department ([id number]) 02/18/19 1:20 PM VASHTI OROZCO [facility] During your visit today, we recorded the following informati on about you: Pulse Respiration Blood pressure Weight 80/minute 18/minute 102/72 119.7 kg Vashti Orozco MD 02/18/2019 2:06 PM Signed Patient presents with: Pain: upper back, into both shoulders AND chest area on AND off X 3 wks HPI: Patient presents today for office visit for acute visit . This Team Access Model visit is a walk in encounter. It requ ired patient-provider interaction for the medical decision making as documented below. Started about three weeks ago. Began in the thoracic o f the back bilaterally and then moved to shoulders and now in t he front of the chest since last week. Naproxen and rest helps. Laying on it and sitting make it painful. Not really pleuritic. No cough. No trauma. No unusual activities. No swelling or palpitations. Has been having a lot more reflux Gets lightheaded at times, is usually when uncomfortable. No tinnitus. Occasional headaches. No focal neuro complaints. He did see cardiology and brgigs d a stress test in 2018 and was told his stress was ok. This is different. Having a lot of stress. MEDICATIONS: Current Outpatient Medications: Cholecalciferol, Vitamin D3, 1,000 unit cap Take 1 capsule by mouth once daily. albuterol HFA 90 mcg/actuation inhaler Inhale 2 Puffs as i nstructed every 6 hours as needed for Wheezing/Shortness of Breath. multivitamin tablet Take 1 tablet by mouth once daily. cyclobenzaprine (FLEXERIL) 10 mg tablet Take 1 tablet by rhea th three times daily as needed. (Patient not taking: Reported on 02/18/2019 ) BUDESONIDE (PULMICORT INHALATION) Inhale as instructed. No current facility-administered medications for this visit. ALLERGIES: ALLERGIES No Known Allergies PAST MEDICAL HISTORY Diagnosis Date - Asthma - Depression - Heart abnormality - NEGATIVE MEDICAL HISTORY - Obesity - Thyroid activity decreased PAST SURGICAL HISTORY Procedure Laterality Date - COLONOSCOP W/ OR W/O BRSH SPEC 06/02/15 Colonoscopy - EGD W/O OR W/BRUSH/WASH 06/02/15 EGD - LEFT HEART CATH,PERCUTANEOUS 06/09/14 Cardiac cath, L heart- [place] - VASECTOMY 06/21/10 FAMILY HISTORY Problem Relation Age of Onset - Coronary Artery Disease Mother - Coronary Artery Disease Maternal Grandfather - None Father - COPD Maternal Grandmother - COPD Maternal Grandfather Social History Socioeconomic History Marital status: Spouse name: Not on file Number of children: 2 Years of education: Not on file Highest education level: Not on file Occupational History 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 Social Needs Financial resource strain: Not on file Food insecurity: Worry: Not on file Inability: Not on file Transportation needs: Medical: Not on file Non-medical: Not on file Tobacco Use Smoking status: Former Smoker Packs/day: 1.00 Years: 8.00 Pack years: 8 Types: Cigarettes Quit date: 04/25/2005 Years since quittin.8 Smokeless tobacco: Never Used Substance and Sexual Activity Alcohol use: No Drug use: No Sexual activity: Yes Partners: Female Lifestyle Physical activity: Days per week: Not on file Minutes per session: Not on file Stress: Not on file Relationships Social connections: Talks on phone: Not on file Gets together: Not on file Attends congregation service: Not on file Active member of club or organization: Not on file Attends meetings of clubs or organizations: Not on file Relationship status: Not on file Intimate partner violence: Fear of current or ex partner: Not on file Emotionally abused: Not on file Physically abused: Not on file Forced sexual activity: Not on file Other Topics Concerns: Not on file Social History Narrative with two children Reviewed current medications, allergies, past medical histor y, surgical history, family history and social history today. REVIEW OF SYSTEMS All other reviewed and negative other than HPI. HEALTH MAINTENANCE: Reviewed health maintenance issues today and recommended the following in detail. There are no preventive care reminders to display for this p atient. VITALS: BP 102/72 Pulse 80 Resp 18 Wt 119.7 kg (264 lb) BMI 38.43 kg/m? BP w/Orthostatic Vitals Date and Time Orthostatic BP Orthostatic Pulse BP Pulse BP Position BP Site BP Cuff Size 02/18/19 1357 122/92 88 -- -- Standing Left Arm Large Adult 02/18/19 1356 118/82 81 -- -- Supine Left Arm Large Adult 02/18/19 1325 -- -- 102/72 80 -- -- -- Last 4 Encounter Wt Readings: Date: Wt: 02/18/2019 119.7 kg (264 lb) 06/23/2018 117.8 kg (259 lb 9.6 oz) 08/05/2017 109.8 kg (242 lb) 09/11/2016 113.4 kg (250 lb) PHYSICAL EXAMINATION: General appearance: Well lesly earing, alert, in no acute distress, well-hydrated, well nourished. Skin: Skin color, texture, turgor normal, no suspicious rash es or lesions Head: Normocephalic, no masses, lesions, tenderness or abnor malities Eyes: Anicteric sclera. Pupils are equally round and reactiv e to light. Extraocular movements are intact. Ears: External ears normal, canals clear Nose/Sinuses: Nares normal, septum midline, mucosa normal, no drainage or sinus tenderness Oropharynx: Lips, mucosa, and tongue nor mal, teeth and gums normal, oropharynx normal Neck: Supple, no adenopathy; thyroid symmetric, normal size, no bruits Chest wall: tender on palpation, especially in the anterior chest wall. Laughing even made it worse Lungs: lungs clear to auscultation. No wheezing, rhonchi, ra les Heart: RRR without murmur, gallop, or rubs. No ectopy Abdomen: Normal abdominal exam, Abdomen soft, non-tender. Bowel sounds normal. No masses, organomegaly Extremities: No deformities, edema, skin discolo ration, clubbing or cyanosis. Good capillary refill. Musculoskeletal: No joint swelling, deformity, or tenderness Peripheral pulses: Normal Neuro: Gait normal. Reflexes normal and symmetri c. Sensation grossly intact., Negative findings: speech no rmal, cranial nerves 2-12 intact, muscle tone normal ASSESSMENT/PLAN: 1. Chest pain, unspecified t ype - ICD9: 786.50, ICD10: R07.9 (primary diagnosis) - appears musculoskeletal. Ice prn Flexeril. Discussed risks and benefits of new medication wit h the patient. Advised them to call if any side effects or questions. - Red flags for re-assessment reviewed with patient in [facility] in three to four weeks. - ECG COMPLETE - XR CHEST 2V FRONTAL/LAT 2. Upper back pain - ICD9: 724.5, ICD10: M54.9 - as above. - ECG COMPLETE - XR CHEST 2V FRONTAL/LAT 3. Lightheaded - ICD9: 780.4, ICD10: R42 - push fluids. Check labs. - CBC + DIFF - BASIC METABOLIC PNL 4. GERD without esophagitis - ICD9: 530.81, ICD10: K21.9 - try omeprazole. Discussed risks and benefits of new medica tion with the patient. Advised them to call if any side effects or questio ns. Vashti Orozco MD Referring Provider: SELF [[id number]] Allergies As of Date: 02/18/2019 (No Known Allergies) Date Reviewed: 02/18/2019 Reviewed by: Geni Lomas LPN - Fully Assessed Reason for Visit: Pain [78] Cmt: upper back, i nto both shoulders AND chest area on AND off X 3 wks Reason For Visit History Recorded Primary Visit Diagnosis:Chest pain, unspecified type [R07.9] Other Visit Diagnoses:Upper back pain [M54.9] Lightheaded [R42] GERD without esophagitis [K21.9] Order(s):ECG COMPLETE [ECG01] Order #: [id number] FUTURE CBC + DIFF [SQCBCDIF] Order #: [id number] FUTURE BASIC METABOLIC PNL [SQBMP] Order #: [id number] FUTURE XR CHEST 2V FRONTAL/LAT [[id number]] Order #: [id number] FUTURE omeprazole (PRILOSEC) 20 mg capsuleTake 1 capsule by mouth d aily before breakfast. 1/2 hr before meal.Disp: 30 capsuleRfl: 1 cyclobenzaprine (FLEXERIL) 10 mg tabletTake 1 tablet by mout h three times daily as needed.Disp: 30 tabletRfl: 0 Prescriptions as of 02/18/2019 Sig: CHOLECALCIFEROL (VITAMIN D3) * Take 1 capsule by mouth once * ALBUTEROL SULFATE HFA 90 MCG/* Inhale 2 Puffs as instructed * * MULTIVITAMIN TABLET Take 1 tablet by mouth once d* OMEPRAZOLE 20 MG CAPSULE,OMER* Take 1 capsule by mouth daily * CYCLOBENZAPRINE 10 MG TABLET Take 1 tablet by mouth three * PULMICORT INHALATION Inhale as instructed. 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 1/2 hr before meal. CYCLOBENZAPRINE 10 MG TABLET 30 t* 0 02/18/2019 Route: ORAL Sig: Take 1 tablet by mouth three times daily as needed. Medications Discontinued During This Encounter sucralfate (CARAFATE) 1 gram tablet 120 * 6 06/28/2015 02/19/20 19 Route: ORAL Sig: Take 1 tablet by mouth before meals and at bedtime. Patient not taking: Reported on 02/18/2019 Disc: Reason for discontinue is not on file. Cosign accepted by EMI BRIGHT MD[[id number]] on 6 3:03 PM cyclobenzaprine (FLEXERIL) 10 mg tab* 30 t* 0 06/23/20182018 Route: ORAL Sig: Take 1 tablet by mouth three times daily as needed. Patient not taking: Reported on 02/18/2019 Disc: Reason for discontinue is not on file. Disposition: Return if symptoms worsen or fail to improve. Follow-up and Disposition History Recorded Encounter Status:Closed by VASHTI OROZCO MD on 02/18/19 cbc and differential on 2019-02-18 Abs Baso 0.08 <0.11 k/uL Normal 02-18-2019 [facility] ([id number]) Comment: Performed By: #### BMP, CBCD IF, TSH #### [facility] [address] [place], [place] [address] Abs Gregory 0.75 <0.87 k/uL Normal 02-18-2019 [facility] ([id number]) Comment: Performed By: #### BMP, CBCD IF, TSH #### [facility] [address] [place], [place] [address] Abs Neut 4.92 1.45-7.50 k/uL Normal 02-18-2019 [facility] ([id number]) Comment: Performed By: #### BMP, CBCD IF, TSH #### [facility] [address] [place], [place] [address] Absolute nRBC <0.01 <0.01 Normal 02-18-2019 [facility] ([id number]) Comment: Performed By: #### BMP, CBCD IF, TSH #### [facility] [address] [place] [phone] Basophils/100 WBC (Bld) 1.0 % Normal 2018 [facility] (36295) Comment: Performed By: #### BMP, CBCD IF, TSH #### [facility] [address] [place] [phone] DTYPE Auto Diff Normal 02-18-2019 [facility] ([id number]) Comment: Performed By: #### BMP, CBCD IF, TSH #### [facility] [address] [place] [phone] Eosinophils (Bld) [#/Vol] 0.28 <0.46 k/uL Normal [facility] (28446) Comment: Performed By: #### BMP, CBCD IF, TSH #### [facility] [address] [place] [phone] Eosinophils/100 WBC (Bld) 3.6 % Normal [facility] (79440) Comment: Performed By: #### BMP, CBCD IF, TSH #### [facility] [address] [place] [phone] Erythrocyte distribution 12.8 11.5-15.0 % Normal 02-18 [facility] width (RBC) [Ratio] [place] ([id number]) Comment: Performed By: #### BMP, CBCD IF, TSH #### [facility] [address] [place] [phone] Hematocrit (Bld) [Volume 43.2 39.0-51.0 % Normal 02-18 [facility] fraction] [place] ([id number]) Comment: Performed By: #### BMP, CBCD IF, TSH #### [facility] [address] [place] [address] Hemoglobin (Bld) 14.7 13.0-17.0 g/dL Normal 02-18-2019 [facility] [Mass/Vol] [place] ([address]) Comment: Performed By: #### BMP, CBCD IF, TSH #### [facility] [address] [place], [place] [address] Lymphocytes (Bld) [#/Vol] 1.67 1.00-4.00 k/uL Normal [facility] (05179) Comment: Performed By: #### BMP, CBCD IF, TSH #### [facility] [place] [address] Lymphocytes/100 WBC (Bld) 21.7 % Normal [facility] ([id number]) Comment: Performed By: #### BMP, CBCD IF, TSH #### [facility] [address] [place] [address] MCH (RBC) [Entitic mass] 28.7 26.0-34.0 pG Normal 02-18 [facility] (66857) Comment: Performed By: #### BMP, CBCD IF, TSH #### [facility] [address] [place] [address] MCHC (RBC) [Mass/Vol] 34.0 30.5-36.0 g/dL Normal 02-19-20 19 [facility] (15871) Comment: Performed By: #### BMP, CBCD IF, TSH #### [facility] [address] [place] [address] MCV (RBC) [Entitic vol] 84.2 80.0-100.0 fL Normal 02-18 [facility] ([id number]) Comment: Performed By: #### BMP, CBCD IF, TSH #### [facility] [address] [place] [address] Monocytes/100 WBC (Bld) 9.7 % Normal 2018 [facility] (48783) Comment: Performed By: #### BMP, CBCD IF, TSH #### [facility] [address] [place], [place] [address] Neutrophils/100 WBC (Bld) 64.0 % Normal [facility] (03818) Comment: Performed By: #### BMP, CBCD IF, TSH #### [facility] [address] [place], [place] [address] NRBCs 0.0 0 /100 WBC Normal 02-18-2019 [facility] ([id number]) Comment: Performed By: #### BMP, CBCD IF, TSH #### [facility] [place], [place] [address] Platelet mean volume 10.7 9.0-12.7 fL Normal 9 [facility] (Bld) [Entitic vol] [place] ([address]) Comment: Performed By: #### BMP, CBCD IF, TSH #### [facility] [address] [place], [place] [address] Platelets (Bld) [#/Vol] 221 150-400 k/uL Normal 2018 [facility] ([id number]) Comment: Performed By: #### BMP, CBCD IF, TSH #### [facility] [address] [place], [place] [address] RBC (Bld) [#/Vol] 5.13 4.20-6.00 m/uL Normal 02-18-2019 [facility] ([id number]) Comment: Performed By: #### BMP, CBCD IF, TSH #### [facility] [address] [place], [place] [address] WBC (Bld) [#/Vol] 7.70 3.70-11.00 k/uL Normal 02-18-2019 [facility] (35752) Comment: Performed By: #### BMP, CBCD IF, TSH #### [facility] [address] [place] [address] basic metabolic panl on 2019-02-18 Anion gap [Moles/Vol] 14 9-18 mmol/L Normal 02-19-20 19 [facility] (71094) Comment: Performed By: #### BMP, CBCD IF, TSH #### [facility] [address] [place] [address] Calcium [Mass/Vol] 9.2 8.5-10.2 mg/dL Normal 02-18-2019 [facility] (08671) Comment: Performed By: #### BMP, CBCD IF, TSH #### [facility] [address] [place] [address] Chloride [Moles/Vol] 101 97-105 mmol/L Normal 9 [facility] (23161) Comment: Performed By: #### BMP, CBCD IF, TSH #### [facility] [address] [place] [address] CO2 [Moles/Vol] 25 22-30 mmol/L Normal 02-18-2019 [facility] (46702) Comment: Performed By: #### BMP, CBCD IF, TSH #### [facility] [address] [place] [address] Creatinine [Mass/Vol] 0.75 0.73-1.22 mg/dL Normal 02-19-20 19 [facility] (34057) Comment: Performed By: #### BMP, CBCD IF, TSH #### [facility] [address] [place] [phone] eGFR- Amer. >60 Normal 02-18-2019 [facility] ([id number]) Comment: Performed By: #### BMP, CBCD IF, TSH #### [facility] [address] [place], [place] [address] GFR/1.73 sq M predicted >60 mL/min/{1.73_m2} Normal 02-18-2019 [facility] among non-blacks MDRD [place] ([id number]) (S/P/Bld) [Vol rate/Area] Comment: Result Comment: eGFR (Estima crispin GFR) Units of measure: mL/min/1.73 meters squared eGFR is derived from the ree xpressed MDRD Study equation using the following parameters: serum creatinine, age, gender and race. The creatinine assay has been calibrated to be traceable to IDMS. An eGFR <60 mL/min/1.73m2 fo r >3 months is consistent with chronic kidney disease. Refer to KDOQI guidelines for clinical interpretation. In patients with unstable re nal function, e.g. those with acute kidney injury, the eGFR may not accurately reflect actual GFR. Performed By: #### BMP, CBCD IF, TSH #### [facility] [address] [place], [place] [address] Glucose [Mass/Vol] 91 74-99 mg/dL Normal 02-18-2019 [facility] ([id number]) Comment: Result Comment: The [place] Diabetes Association (ADA) provides guidance for cutoff values for fasting glucose and random glucose. The ADA defines fasting as no caloric intake for at least 8 hours. Fas ting plasma glucose results between 100 to 125 mg/dL indicate increased risk for diabetes (prediabetes). Fasting plasma glucose resul ts greater than or equal to 126 mg/dL meet the criteria for diagnosis of diabetes. In the absence of unequivocal hyperglycemia, results should be confirmed by repeat testing. In a patient with classic s ymptoms of hyperglycemia or hyperglycemic crisis, random plasma glucose results greater than or equal to 200 mg/dL meet the criteria for diagnosis of diabetes. Reference: Standards of [facility] Care in Diabetes 2016, [place] Diabetes Association. Diabetes Care. 2016.39(Suppl 1). Performed By: #### BMP, CBCD IF, TSH #### [facility] [address] [place], [place] [address] Potassium [Moles/Vol] 4.2 3.7-5.1 mmol/L Normal 02-19-20 19 [facility] ([id number]) Comment: Performed By: #### BMP, CBCD IF, TSH #### [facility] [address] [place], [place] [phone] Sodium [Moles/Vol] 140 136-144 mmol/L Normal 02-18-2019 [facility] ([id number]) Comment: Performed By: #### BMP, CBCD IF, TSH #### [facility] [address] [place], [place] [phone] Urea nitrogen [Mass/Vol] 10 9-24 mg/dL Normal 02-18 [facility] ([id number]) Comment: Performed By: #### BMP, CBCD IF, TSH #### [facility] [address] [place], [place] [phone] patient summary documents on 2017-01-18 Patient Summary Documents Normal 09-0 [facility] ([place]) ([id number]) [place] [facility] note on 2017-01-18 [facility] Note Normal 0 01-18-2017 [facility] [place] ([id number]) Encounters Date Type Reason Provider Location 01-18-2017 - Emergency department CIRO ALEXANDRA NONE F acility:B 01-18-2017 patient visit PHYSICIAN Payers Payer Name Policy Number Location [employer] [id number] [facility] ([id number]) The following information is from the original human readable contentNo Payer Records Found Summary Purpose Family History No Family History Records FoundNo Family History Records Found Advance Directives No Advanced Directives Records FoundNo Advanced Directives Records Found Additional Source Comments FOR RECORDS PERTAINING TO PATIENTS WHO ARE OR HAVE BEEN ENROLLED IN A CHEMICAL DEPENDENCY/SUBSTANCE ABUSE PROGRAM, SOME INFORMATION MAY BE OMITTED. This clinical summary was aggregated from multiple sources. Caution should be exercised in using it in the provision of clinical care. This summary normalizes information from multiple sources, and as a consequence, information in this document may materially changethe coding, format and clinical context of patient data. In addition, data may be omittedin some cases. CLINICAL DECISIONS SHOULD BE BASED ON THE PRIMARY CLINICAL RECORDS. [facility] provides no warranty or guarantee of the accuracy or completeness of information in this document. UNRECOGNIZED CONTENT PROVIDED BELOW FOR UNRECOGNIZED SECTION No Status Records FoundNo Status Records Found UNRECOGNIZED CONTENT PROVIDED BELOW FOR UNRECOGNIZED SECTION INFORMATION SOURCE DATE CREATED AUTHOR AUTHOR'S ORGANIZATIO N 11/13/2017 [facility] Found ation ([place]) DATE CREATED AUTHOR AUTHOR'S ORGANIZATIO N 01/15/2020 [facility] Michael bolivar
--- OUTSIDE RECORDS SUMMARY | 2020-03-06 10:18 | XMS RPT_ITS | CCD ---
:1980 External Reference #:[id number] Author Organization [facility] Care Team Providers Name Role Phone RIDERJordy Unavailable Unavailable PHYSICIAN Unavailable Unavailable Results Result Name Value Range Unit Interpretation Flag Date Location progress on 2019-12 PROGRESS HNO ID: [id number] Normal 01-14-2020 [facility] Author: David (Equalizing Saw Operator) Anthony [place] ([id number]) Service: ? Author Type: Nurse Practitioner Type: Progress Notes Filed: 01/14/2020 2:37 PM Note Text: Subjective HPI HPI Lonnie Bob is a 39 year old male who [facility] CC of dental pain. This started [...] MG TABLET Agrees to plan David Cruz APRN.ELECTROTYPE SERVICER cnov on 2020-01-14 CNOV Office Visit (UCWSTR) Normal 01-14-[address] [place] [facility] LISBETHLONNIE CHONG ([id number]) 1980 [facility] Date Time Provider Department ([id number]) 01/14/20 2:00 PM DAVID CRUZ (JAGRUTI) [facility] During your visit today, we recorded the [...] 875 mg tablet Take 1 tablet by [facility] twice daily for 10 days. omeprazole [...] MG TABLET Agrees to plan David Cruz APRN.ELECTROTYPE SERVICER Referring Provider: SELF [200] Allergies As of [...] 01/14/20 progress on 2019-10 PROGRESS HNO ID: [id number] Normal 11-05-2019 [facility] Author: Sharlene Aragon) Stephen Srivastava ([id number]) Service: ? Author Type: Physician Community Health Nurse Supervisor Type: Progress Notes Filed: 11/05/2019 9:58 AM Note Text: [facility] [place] PATIENT INFO: Lonnie Bob 38 year old CCF# [id number] PCP: Vashti Orozco MD Referred by: Vashti [...] prob lems. No history of angina, CHF, OR, cardiac surgery of stents. Respiratory: Negative for [...] s. Neurologic: No history of TIA's, stroke, ASH PIT WORKER tumor, impaired sensorium, hemiplegia, paraplegia or quadriplegia. [...] UA (POCT) Clear RADIOLOGY: US Scrotum - [facility] report - Normal - scanned into EPIC [...] 2019-11-05 CNOV Office Visit (UROLWS) Normal 11-05-[address] [place] [address] [facility] LONNIE BOB ([id number]) 1980 [facility] Date Time Provider Department ([id number]) 11/05/19 9:20 AM SHARLENE DE LA ROSA) UROLWS During your visit today, we recorded the following informati on about you: Temperature Pulse Respiration Blood pressure 98.2 degrees 80/minute 16/minute 130/84 Weight 117.7 kg VENTURA Varela 11/05/2019 9:58 AM Signed [facility] [place] PATIENT INFO: Lonnie Bob 38 year old CCF# [id number] PCP: Vashti Orozco MD Referred by: Vashti [...] prob lems. No history of angina, CHF, OR, cardiac surgery of stents. Respiratory: Negative for [...] s. Neurologic: No history of TIA's, stroke, ASH PIT WORKER tumor, impaired sensorium, hemiplegia, paraplegia or quadriplegia. [...] UA (POCT) Clear RADIOLOGY: US Scrot[facility] - [facility] report - Normal - scanned into EPIC [...] Diagnosis:Testicular pain [N50.819] Order(s):UA DIP, URINE (POC) [[id number]] Order #: [id number] . #:[id number] Prescriptions as of 11/05/2019 Sig: LEVOTHYROXINE 50 [...] TSH Qn 4.650 0.270-4.200 uU/mL High 03-31-2019 [facility] ([id number]) Comment: Performed By: #### CMP, LIPB , TSH ####[facility] [address] [place] [address] [phone] progress on 2019-03 PROGRESS HNO ID: [id number] Normal 03-31-2019 [facility] Author: Brain Le (James) Smooth [place] ([id number]) Service: ? Author Type: Physician Community Health Nurse Supervisor Type: Progress Notes Filed: 03/31/2019 5:21 PM [...] Cholesterol [Mass/Vol] 186 <200 mg/dL Normal 019 [facility] (71871) Comment: Result Comment: <200 mg/dL, Desirable 200-239 mg/dL, Borderline hi gh >239 mg/dL, High Performed By: #### CMP, LIPB , TSH ####[place] [address] [phone] Cholesterol in HDL [Mass/Vol] 39 >39 mg/dL Low 03-31-2019 [facility] (40087) Comment: Result Comment: 40-59 mg/dL, Acceptable >59 mg/dL, High: Negative ri sk factor for coronary heart disease <40 mg/dL, Low: Positive ris k factor for coronary heart disease Performed By: #### CMP, LIPB , TSH ####[place] [address] [phone] Cholesterol in LDL 119 <100 mg/dL High 03-31-2019 [facility] [Mass/Vol] (58215) Comment: Result Comment: <100 mg/dL, Optimal 100-129 mg/dL, Near optimal/ above optimal 130-159 mg/dL, Borderline hi gh 160-189 mg/dL, High >189 mg/dL, Very high Secondary prevention optimal LDL Cholesterol levels are recommended to be < 70 mg/dL Performed By: #### CMP, LIPB , TSH ####[place] [address] [phone] Fasting Time 12 hrs Normal 03-31-2019 [facility] (98208) Comment: Performed By: #### CMP, LIPB , TSH ####[place] [address] [phone] LDL:HDL Ratio 3.05 <2.54 High 03-31-2019 [facility] (84859) Comment: Result Comment: Reference: 1. National Cholesterol Educ ation Program ATP III Guideline At-A-Glance Quick Desk Reference: National Heart, Lung, and Blood [place]. National Institutes of Health. 2001: NIH Publication No. 01-3305. 2. An International Atherosc lerosis Society position paper: global recommendations for the management of dyslipidemia: executive summary, Atherosclerosis. 2014: 232(2):410-413. Performed By: #### CMP, LIPB , TSH ####[place] [id number] [place] [address] [phone] Non HDL Cholesterol 147 <130 mg/dL High 03-31-2019 [facility] (13642) Comment: Result Comment: <130 mg/dL, Optimal 130-159 mg/dL, Near optimal/ above optimal 160-189 mg/dL, Borderline hi gh 190-219 mg/dL, High >219 mg/dL, Very high Secondary prevention optimal non HDL Cholesterol levels are recommended to be < 100 mg/dL Performed By: #### CMP, LIPB , TSH ####[place] [address] [phone] TC:HDL Ratio 4.77 <5.10 Normal 03-31-2019 [facility] (09972) Comment: Performed By: #### CMP, LIPB , TSH ####[place] [address] [phone] Triglyceride [Mass/Vol] 140 <150 mg/dL Normal 2018 [facility] (47853) Comment: Result Comment: <150 mg/dL, Normal 150-199 mg/dL, Borderline hi gh 200-499 mg/dL, High >499 mg/dL, Very high Performed By: #### CMP, LIPB , TSH ####[place] [address] [phone] VLDL Cholesterol 28 <30 mg/dL Normal 03-31-2019 [facility] (44823) Comment: Performed By: #### CMP, LIPB , TSH ####[place] [id number] [place] [address] [phone] comp metabolic panel on 2019-03-31 Albumin [Mass/Vol] 4.5 3.9-4.9 g/dL Normal 03-31-2019 [facility] (71800) Comment: Performed By: #### CMP, LIPB , TSH #### [facility] [address] [place], [place] [address] ALP [Catalytic activity/Vol] 56 38-113 U/L Normal 1 05-31-2018 [facility] (42909) Comment: Performed By: #### CMP, LIPB , TSH #### [facility] [address] [place], [place] [address] ALT [Catalytic activity/Vol] 74 10-54 U/L High 1 05-31-2018 [facility] (14146) Comment: Performed By: #### CMP, LIPB , TSH #### [facility] [address] [place], [place] [address] Anion gap [Moles/Vol] 11 9-18 mmol/L Normal 03-31-20 19 [facility] (32861) Comment: Performed By: #### CMP, LIPB , TSH #### [facility] [address] [place], [place] [address] AST [Catalytic activity/Vol] 43 14-40 U/L High 1 05-31-2018 [facility] (52206) Comment: Performed By: #### CMP, LIPB , TSH #### [facility] [address] [place], [place] [address] Bilirubin [Mass/Vol] 0.6 0.2-1.3 mg/dL Normal 9 [facility] (02458) Comment: Performed By: #### CMP, LIPB , TSH #### [facility] [address] [place], [place] [address] Calcium [Mass/Vol] 9.5 8.5-10.2 mg/dL Normal 03-31-2019 [facility] (08060) Comment: Performed By: #### CMP, LIPB , TSH #### [facility] [address] [place], [place] [address] Chloride [Moles/Vol] 98 97-105 mmol/L Normal 9 [facility] (76909) Comment: Performed By: #### SHEYLA BROWNB , TSH #### [facility] [address] [place] [address] CO2 [Moles/Vol] 26 22-30 mmol/L Normal 03-31-2019 [facility] (63740) Comment: Performed By: #### SHEYLA BROWNB , TSH #### [facility] [address] [place] [address] Creatinine [Mass/Vol] 0.79 0.73-1.22 mg/dL Normal 03-31-20 19 [facility] (37304) Comment: Performed By: #### SHEYLA BROWNB , TSH #### [facility] [address] [place] [address] eGFR- Amer. >60 Normal 03-31-2019 [facility] (21468) Comment: Performed By: #### SHEYLA BROWNB , TSH #### [facility] s [address] [place] [address] GFR/1.73 sq M predicted >60 mL/min/{1.73_m2} Normal 03-31-2019 [facility] among non-blacks [facility] (90598) (S/P/Bld) [Vol rate/Area] Comment: Result Comment: eGFR [...] By: #### STEPHANIE LIPB , TSH #### [facility] [address] [place] [address] Glucose [Mass/Vol] 100 74-99 mg/dL High 03-31-2019 [facility] (27528) Comment: Result Comment: The [place] Diabetes Association (ADA) provides guidance for cutoff [...] for diagnosis of diabetes. Reference: Standards of [facility] Care in Diabetes 2016, [place] Diabetes Association. Diabetes Care. 2016.39(Suppl 1). Performed By: #### CMP, LIPB , TSH #### [facility] [address] [place] [address] Potassium [Moles/Vol] 4.0 3.7-5.1 mmol/L Normal 03-31-20 19 [facility] (65065) Comment: Performed By: #### CMP, LIPB , TSH #### [facility] [address] [place], [place] [address] Protein [Mass/Vol] 7.6 6.3-8.0 g/dL Normal 03-31-2019 [facility] (17153) Comment: Performed By: #### CMP, LIPB , TSH #### [facility] [address] [place], [place] [address] Sodium [Moles/Vol] 135 136-144 mmol/L Low 03-31-2019 [facility] (87205) Comment: Performed By: #### CMP, LIPB , TSH #### [facility] [address] [place], [place] [address] Urea nitrogen [Mass/Vol] 9 9-24 mg/dL Normal 03-31 [facility] (98321) Comment: Performed By: #### CMP, LIPB , TSH #### [facility] [address] [place] [id number] cnov on 2019-03-31 CNOV Office Visit (FAMPWS) Normal 03-31-[address] [place] [facility] LONNIE BOB ([id number]) 1980 [facility] Date Time Provider Department (13863) 03/31/19 9:20 AM [facility] visit today, we recorded the [...] * *Final Report* * * Normal 02-18 [facility] FRONTAL/LAT DATE OF EXAM: Feb 18 2019 2:31PM [place] WOX 5291 - XR CHEST 2V FRONTAL/LAT / (84270) PROCEDURE REASON: multiple diagnoses * * * [...] osseous abnormality. IMPRESSION: No acute radiographic abnormality. Chief Engineer'S Helper: PSCB Transcribe Date/Time: Feb 18 2019 2:49P Dictated by : NITESH CARVAJAL MD This examination was interpreted and the report reviewed and electronically signed by: NITESH CARVAJAL MD on Feb 18 2019 2:50PM EST [id number] tsh on 2019-02-18 TSH Qn 7.110 0.400-5.500 uU/mL High 02-18-2019 [facility] (88774) Comment: Performed By: #### BMP, CBCD IF, TSH #### [facility] [address] [place] [address] progress on 2019-02 PROGRESS HNO ID: [id number] Normal 02-18-2019 [facility] Author: Earnestine FalconRtMesfin Sy ([id number]) Service: ? Author Type: Firmware Developer Type: Progress Notes Filed: 02/18/2019 2:31 PM [...] 18, 2019 2:24 PM PROGRESS HNO ID: [id number] Normal 02-18-2019 [facility] Author: Vashti Orozco [place] ([id number]) Service: ? 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 - ECG [...] ECG COMPLETE NAME : LONNIE BOB Normal [facility] PID : [id number] Claudio mishra ([id number]) : 1980 Gender : Male Race : ORD : [id number] Procedure Date : Feb 18 2019 13:46:47 Edit Date : Apr 09 2019 13:12:58 Diagnosis:NORMAL SINUS RHYTHM NORMAL ECG Confirmed by MD LE GREGORY () on 04/09/2019 1:11:3 9 PM Ventricular Rate : 80 BPM Atrial Rate : 80 BPM P-R Interval : 140 ms QRS Duration : 100 ms Q-T Interval : 386 ms QTC Calculation(Bazett) : 445 ms P [place] : 11 degrees R [place] : 17 degrees T [place] : 2 degrees Test Reason : Location : 185 : [facility] Overread By : MD LE GREGORY Edited By : MD LE GREGORY Referred By : VASHTI OROZCO Acquired by : bautista BENITEZ on 2019-02-18 BAUTISTA Office Visit (FAMJaniceWS) Normal 02-19-[address] [place] [facility] LONNIE BOB ([id number]) 1980 [facility] Time Provider Department (73758) 02/18/19 1:20 PM VASHTI OROZCO [facility] During your visit today, we recorded the [...] neuro complaints. 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 - ECG [...] esophagitis [K21.9] Order(s):ECG COMPLETE [ECG01] Order #: [id number] FUTURE CBC + DIFF [SQCBCDIF] Order #: [id number] FUTURE BASIC METABOLIC PNL [SQBMP] Order #: [id number] FUTURE XR CHEST 2V FRONTAL/LAT [0378373] Order #: [id number] FUTURE omeprazole (PRILOSEC) 20 mg capsuleTake 1 [...] on file. Cosign accepted by EMI BRIGHT MD[[id number]] on 6 3:03 PM cyclobenzaprine (FLEXERIL) 10 [...] Abs Baso 0.08 <0.11 k/uL Normal 02-18-2019 [facility] (24715) Comment: Performed By: #### BMP, CBCD IF, TSH #### [facility] [address] [place], [place] [address] Abs Edmunds 0.75 <0.87 k/uL Normal 02-18-2019 [facility] (72226) Comment: Performed By: #### BMP, CBCD IF, TSH #### [facility] [address] [place], [place] [address] Abs Neut 4.92 1.45-7.50 k/uL Normal 02-18-2019 [facility] (78620) Comment: Performed By: #### BMP, CBCD IF, TSH #### [facility] [address] [place], [place] [address] Absolute nRBC <0.01 <0.01 Normal 02-18-2019 [facility] (26690) Comment: Performed By: #### BMP, CBCD IF, TSH #### [facility] [address] [place] [phone] Basophils/100 WBC (Bld) 1.0 % Normal 2018 [facility] (13037) Comment: Performed By: #### BMP, CBCD IF, TSH #### [facility] [address] [place] [phone] DTYPE Auto Diff Normal 02-18-2019 [facility] (36203) Comment: Performed By: #### BMP, CBCD IF, TSH #### [facility] [address] [place] [phone] Eosinophils (Bld) [#/Vol] 0.28 <0.46 k/uL Normal [facility] (53616) Comment: Performed By: #### BMP, CBCD IF, TSH #### [facility] [address] [place] [phone] Eosinophils/100 WBC (Bld) 3.6 % Normal [facility] (12985) Comment: Performed By: #### BMP, CBCD IF, TSH #### [facility] [address] [place] [phone] Erythrocyte distribution 12.8 11.5-15.0 % Normal 02-18 [facility] width (RBC) [Ratio] [place] ([address]) Comment: Performed By: #### BMP, CBCD IF, TSH #### [facility] [address] [place] [phone] Hematocrit (Bld) [Volume 43.2 39.0-51.0 % Normal 02-18 [facility] fraction] [place] ([address]89) Comment: Performed By: #### BMP, CBCD IF, TSH #### [facility] [address] [place] [address] Hemoglobin (Bld) 14.7 13.0-17.0 g/dL Normal 02-18-2019 [facility] [Mass/Vol] [place] (99985) Comment: Performed By: #### BMP, CBCD IF, TSH #### [facility] [address] [place], [place] [address] Lymphocytes (Bld) [#/Vol] 1.67 1.00-4.00 k/uL Normal [facility] (32972) Comment: Performed By: #### BMP, CBCD IF, TSH #### [facility] [place] [address] Lymphocytes/100 WBC (Bld) 21.7 % Normal [facility] (15393) Comment: Performed By: #### BMP, CBCD IF, TSH #### [facility] [address] [place] [address] MCH (RBC) [Entitic mass] 28.7 26.0-34.0 pG Normal 02-18 [facility] (26133) Comment: Performed By: #### BMP, CBCD IF, TSH #### [facility] [address] [place] [address] MCHC (RBC) [Mass/Vol] 34.0 30.5-36.0 g/dL Normal 02-19-20 19 [facility] (58582) Comment: Performed By: #### BMP, CBCD IF, TSH #### [facility] [address] [place] [address] MCV (RBC) [Entitic vol] 84.2 80.0-100.0 fL Normal 02-18 [facility] (09414) Comment: Performed By: #### BMP, CBCD IF, TSH #### [facility] [address] [place] [address] Monocytes/100 WBC (Bld) 9.7 % Normal 2018 [facility] (82810) Comment: Performed By: #### BMP, CBCD IF, TSH #### [facility] [address] [place], [place] [address] Neutrophils/100 WBC (Bld) 64.0 % Normal [facility] (32316) Comment: Performed By: #### BMP, CBCD IF, TSH #### [facility] [address] [place], [place] [address] NRBCs 0.0 0 /100 WBC Normal 02-18-2019 [facility] (21660) Comment: Performed By: #### BMP, CBCD IF, TSH #### [facility] [place], [place] [address] Platelet mean volume 10.7 9.0-12.7 fL Normal 9 [facility] (Bld) [Entitic vol] [place] ([address]1009) Comment: Performed By: #### BMP, CBCD IF, TSH #### [facility] [address] [place], [place] [address] Platelets (Bld) [#/Vol] 221 150-400 k/uL Normal 2018 [facility] (42138) Comment: Performed By: #### BMP, CBCD IF, TSH #### [facility] [address] [place], [place] [address] RBC (Bld) [#/Vol] 5.13 4.20-6.00 m/uL Normal 02-18-2019 [facility] (46392) Comment: Performed By: #### BMP, CBCD IF, TSH #### [facility] [address] [place], [place] [address] WBC (Bld) [#/Vol] 7.70 3.70-11.00 k/uL Normal 02-18-2019 [facility] (41810) Comment: Performed By: #### BMP, CBCD IF, TSH #### [facility] [address] [place] [address] basic metabolic panl on 2019-02-18 Anion gap [Moles/Vol] 14 9-18 mmol/L Normal 02-19-20 19 [facility] (12802) Comment: Performed By: #### BMP, CBCD IF, TSH #### [facility] [address] [place] [address] Calcium [Mass/Vol] 9.2 8.5-10.2 mg/dL Normal 02-18-2019 [facility] (42677) Comment: Performed By: #### BMP, CBCD IF, TSH #### [facility] [address] [place] [address] Chloride [Moles/Vol] 101 97-105 mmol/L Normal 9 [facility] (04143) Comment: Performed By: #### BMP, CBCD IF, TSH #### [facility] [address] [place] [address] CO2 [Moles/Vol] 25 22-30 mmol/L Normal 02-18-2019 [facility] (88113) Comment: Performed By: #### BMP, CBCD IF, TSH #### [facility] [address] [place] [address] Creatinine [Mass/Vol] 0.75 0.73-1.22 mg/dL Normal 02-19-20 19 [facility] (30507) Comment: Performed By: #### BMP, CBCD IF, TSH #### [facility] [address] [place] [id number] eGFR- Amer. >60 Normal 02-18-2019 [facility] (33621) Comment: Performed By: #### BMP, CBCD IF, TSH #### [facility] [address] [place], [place] [address] GFR/1.73 sq M predicted >60 mL/min/{1.73_m2} Normal 02-18-2019 [facility] among non-blacks MDRD [place] (25604) (S/P/Bld) [Vol rate/Area] Comment: Result Comment: eGFR [...] By: #### BMP, CBCD IF, TSH #### [facility] [address] [place], [place] [address] Glucose [Mass/Vol] 91 74-99 mg/dL Normal 02-18-2019 [facility] (23872) Comment: Result Comment: The [place] Diabetes Association (ADA) provides guidance for cutoff [...] for diagnosis of diabetes. Reference: Standards of [facility] Care in Diabetes 2016, [place] Diabetes Association. Diabetes Care. 2016.39(Suppl 1). Performed By: #### BMP, CBCD IF, TSH #### [facility] [address] [place], [place] [address] Potassium [Moles/Vol] 4.2 3.7-5.1 mmol/L Normal 02-19-20 19 [facility] (45410) Comment: Performed By: #### BMP, CBCD IF, TSH #### [facility] [address] [place], [place] [address] Sodium [Moles/Vol] 140 136-144 mmol/L Normal 02-18-2019 [facility] (79367) Comment: Performed By: #### BMP, CBCD IF, TSH #### [facility] [address] [place], [place] [address] Urea nitrogen [Mass/Vol] 10 9-24 mg/dL Normal 02-18 [facility] (75910) Comment: Performed By: #### BMP, CBCD IF, TSH #### [facility] [address] [place], [place] [id number] patient summary documents on 2017-01-18 Patient Summary Documents Normal 09-0 [facility] [place] ([address]676) [place] [facility] note on 2017-01-18 [facility] Note Normal 0 01-18-2017 [facility] [place] (59870) Encounters Date Type Reason Provider Location 01-18-2017 - Emergency department CIRO ALEXANDRA NONE F acility:B 01-18-2017 patient visit PHYSICIAN Payers Payer Name Policy Number Location [employer] [id number] Pending sale to [facility] ([place]) ([id number]) The following information is from the original [...] BE BASED ON THE PRIMARY CLINICAL RECORDS. [facility] provides no warranty or guarantee of the accuracy or completeness of information in this document. UNRECOGNIZED CONTENT PROVIDED BELOW FOR UNRECOGNIZED SECTION No Status Records FoundNo Status Records Found UNRECOGNIZED CONTENT PROVIDED BELOW FOR UNRECOGNIZED SECTION INFORMATION SOURCE DATE CREATED AUTHOR AUTHOR'S ORGANIZATIO N 11/13/2017 [facility] Found ation ([place]) DATE CREATED AUTHOR AUTHOR'S ORGANIZATIO N 01/15/2020 [facility] Michael bolivar
== END 2019-10-27 13:19 | disposition home or self-care (01) ==
LOC: ED 12:10
PROVIDERS: Emergency Provider Emergency Medicine; PCP Family Medicine
DX: N45.1 Epididymitis (principal); N50.812 Left testicular pain; Z79.899 Other long term (current) drug therapy
CPT/HCPCS: 76870; 81001; 93976; 99282

== ENCOUNTER 2021-10-03 15:45 | Emergency (ER) | payer BC, MEDICAID, SELFPAY ==
[2021-10-03 15:46] VITALS: BP 138/111; PULSE 108; RESP 18; TEMP 36.4; O2SAT 98; BMI 38.0
--- NOTE | 2021-10-03 17:04 | ED.VIS.BACK ---
HPI History of Present Illness Chief Complaint: Back Informant: patient Onset/Context/Timing Onset: Today Context: Sudden Onset Injury: other (Stepping up onto a ladder) Timing: Continuous Quality: Sharp Location: Lumbar and Buttock Worsened by: improves with Movement Relieved by: Remaining Still Associated Symptoms Associated Symptoms: Abdominal Pain; Negative for Numbness, Tingling, Radiation to Right Leg, Dysuria, Urinary Retention, Urinary Incontinence, Constipation and Fecal Incontinence Narrative Narrative: Patient presents with back pain that began today. Patient states that he was stepping up onto a ladder when the pain began. Patient states he has had prior problems with his sacroiliac joint. Patient states the pain is similar to prior episodes. Patient states the pain is been constant. Patient describes the pain as sharp. Patient states it is worse with any movement and better when he is laying on his left side. Patient states the pain radiates into his right lower abdomen. Patient denies any nausea or vomiting. Patient denies any bowel or bladder changes. Patient denies any saddle anesthesia. [facility] Medical History (Updated 10/03/21 @ 18:[address] Royce Dixon, ) Asthma Depression Hyperlipidemia Obesity (BMI 30-39.9) Home Medications albuterol sulfate 1 - 2 puff INHALATION Q4H PRN 06/08/14 [History Last Taken 06/08/14] multivitamin 1 tab PO QDAY 08/28/17 [History Last Taken Unknown] arginine (L-arginine) 500 mg tablet 500 mg PO QDAY 08/29/17 [History Last Taken Unknown] cholecalciferol (vitamin D3) 25 mcg (1,000 unit) capsule 1,000 unit PO QDAY 08/29/17 [History Last Taken Unknown] levocarnitine 500 mg tablet 500 mg PO ONCE 08/29/17 [History Last Taken Unknown] gemfibrozil 600 mg tablet 600 mg PO BID #60 tab 11/11/17 [Rx Last Taken Unknown] cephalexin 500 mg PO Q8 #21 cap 02/01/18 [Rx Last Taken Unknown] famotidine 20 mg PO BID #14 tab 02/01/18 [Rx Last Taken Unknown] prednisone 10 mg PO UD #33 tab 02/01/18 [Rx Last Taken Unknown] naproxen 500 mg PO BID PRN #20 tab 07/30/19 [Rx Last Taken Unknown] sulfamethoxazole-trimethoprim 1 tab PO BID #14 tab 10/27/19 [Rx Last Taken Unknown] cyclobenzaprine 10 mg PO QHS PRN PRN #10 tablet 10/03/21 [Rx Last Taken Unknown] naproxen 500 mg PO BID PRN PRN #20 tab 10/03/21 [Rx Last Taken Unknown] Allergy/AdvReac Type Severity Reaction Status Date / Time simvastatin AdvReac Severe Severe Verified 10/03/21 15:48 myalgias Family History Mother CAD (coronary artery disease) CABG 2008 Myocardial infarction age 44 Grandfather CAD (coronary artery disease) CABG Grandmother CAD (coronary artery disease) stents Brother Heart disease Open Heart Surgery for rupture? Surgical History History of left heart catheterization (~06/09/14) History of vasectomy (~2010) Social History Smoking Status: Former smoker quit date: 04/25/05 pack-years: 8 alcohol intake: never caffeine: Yes Type: carbonated beverages Number of servings: 1 and coffee Number of servings: 2 ROS ROS ED Constitutional Constitutional ED: Denies chills or fever(s) Eyes Eyes: Denies blurry vision or change in vision ENT ENT ED: Denies rhinorrhea or sore throat Cardiovascular Cardiovascular: Denies chest pain or palpitations Respiratory/Chest Respiratory/Chest: Denies cough or dyspnea Gastrointestinal Gastrointestinal: Denies nausea or vomiting Genitourinary Genitourinary ED: Denies dysuria or hematuria Musculoskeletal Musculoskeletal: Reports back pain; Denies neck pain Integumentary Denies abscess or rash Neurologic Neurologic: Denies headache(s) or weakness Allergic/Immunologic Allergic/Immunologic ED: Denies mouth swelling or urticaria EXAM Physical Exam Const Vital Signs: 10/03/21 15:46 10/03/21 17:55 Temperature 97.6 F L Temperature Source Temporal Pulse Rate 108 H 86 Respiratory Rate 18 18 Blood Pressure 138/111 H 131/97 H Blood Pressure Mean 120 Pulse Ox 98 98 Oxygen Delivery Method Room Air Positive well nourished, well developed and obese General Appearance ED: well developed and NAD Nutritional Appearance: obese HEENT Reports moist mucous membranes Neck supple Back/Spine Back/Spine Narrative: There is tenderness over the right lumbar paraspinal muscles. There is no midline tenderness. There is no bony crepitance or step-off. Range of motion was limited in all motions of the lumbar spine secondary to pain. Strength is 5/5 bilaterally in the lower extremities. There are no sensory deficits noted. Deep tendon reflexes are 2+/4 bilaterally in the lower extremities. Lumbar Spine / Lower Back: ROM limited and straight leg raise negative bilaterally Neuro oriented x3 and no sensory deficits noted Sensorium / Orientation: alert Motor Exam: strength 5/5 throughout Deep Tendon Reflexes: Rt Patellar (L4): 2+, Lt Patellar (L4): 2+, Rt Ankle (S1): 2+ and Lt Ankle (S1): 2+ Deep Tendon Reflexes Back: Rt Patellar (L4): 2+, Lt Patellar (L4): 2+, Rt Ankle (S1): 2+ and Lt Ankle (S1): 2+ Psych mental status grossly normal MDM MDM MDM Narrative Medical decision making narrative: Patient was given injections of Toradol and Norflex here. Patient was able to ambulate after this. I do not feel x-rays are necessary at this time since there is no trauma. Patient was given prescriptions for Naprosyn and Flexeril. Patient was instructed to use ice to the area. Patient was instructed to follow-up with his primary care physician in 5 to 7 days. Patient understood and was agreeable with the plan. All questions were answered. Discharge Plan Triage Chief Complaint: Back ED Provider: Royce Dixon Dx/Rx/DC Orders Clinical Impression: Acute lumbosacral myofascial strain Instructions: ED Back Sprain/Strain Prescriptions: Continued naproxen 500 MG tablet 500 mg PO BID PRN PRN (Reason: Pain) Qty: 20 RF: 0 Changed cyclobenzaprine 10 MG tablet 10 mg PO QHS PRN PRN (Reason: Muscle Spasm) Qty: 10 RF: 0 No Action levocarnitine [L-Carnitine] 500 mg tablet 500 mg PO ONCE RF: 0 cholecalciferol (vitamin D3) 1,000 unit capsule 1,000 unit PO QDAY RF: 0 arginine (L-arginine) 500 mg tablet 500 mg PO QDAY RF: 0 multivitamin tablet 1 tab PO QDAY RF: 0 albuterol sulfate 18 GM HFA aerosol inhaler 1 - 2 puff Inhalation Q4H PRN (Reason: Sob &/Or Wheezing) RF: 0 prednisone 10 MG tablet 10 mg PO UD Qty: 33 RF: 0 famotidine 20 MG tablet 20 mg PO BID Qty: 14 RF: 0 cephalexin 500 MG capsule 500 mg PO Q8 Qty: 21 RF: 0 naproxen 500 MG tablet 500 mg PO BID PRN Qty: 20 RF: 0 sulfamethoxazole-trimethoprim 1 TABLET tablet 1 tab PO BID Qty: 14 RF: 0 gemfibrozil 600 mg tablet 600 mg PO BID Qty: 60 RF: 11 Primary Care Provider: Daniel Orozco Referrals: Daniel Orozco MD [Primary Care Provider] -
[2021-10-03] MEDS: Orphenadrine 60 MG/2 ML Ampul IM (17:28)
[2021-10-03] MEDS: Ketorolac 60 MG/2 ML Vial IM (17:29)
[2021-10-03 17:55] VITALS: BP 131/97; PULSE 86; RESP 18; O2SAT 98
== END 2021-10-03 18:25 | disposition home or self-care (01) ==
PROVIDERS: Emergency Provider Emergency Medicine; PCP Family Medicine; Visit Provider Emergency Medicine
DX: S39.012A Strain of muscle, fascia and tendon of lower back, initial encounter (principal); X58.XXXA Exposure to other specified factors, initial encounter; E78.5 Hyperlipidemia, unspecified; J45.909 Unspecified asthma, uncomplicated; E66.9 Obesity, unspecified; Z87.891 Personal history of nicotine dependence
CPT/HCPCS: 96372; 99282